=== PATIENT | female | born 1950 | race Caucasian/White ===

== ENCOUNTER 2018-11-13 15:09 | Observation (INO) | payer OTHER, BC ==
--- OUTSIDE RECORDS SUMMARY | 2018-11-13 17:08 | XMS REPORT | Clinical Summary ---
:1950 Author Organization [facility] Address [address] [place] [address] Care Team Providers Name Role Phone Jace Bear MD Primary Care Provider Allergies Active Allergy Reactions Severity Noted Date Comments Adhesive Tape-Silicones Rash Low 07/04/2017 Pulls skin off Codeine Other (See 10/30/2017 "vomit" Comments) Meperidine Rash Low 07/04/2017 hallucinations Metronidazole Hives 07/04/2017 Draws face up, hallucination Latex Hives 07/04/2017 Breathing difficulties Etodolac 07/04/2017 Bad reaction due to aspirin base Metoclopramide Low 07/04/2017 Made jaw draw up Butorphanol Tartrate 07/04/2017 Could not respond to anything Medications Medication Sig Dispensed Refills Start Date End Date Status simvastatin (ZOCOR) 20 Take 20 mg by 0 05/15/2017 Active MG tablet mouth nightly. losartan (COZAAR) 100 Take 100 mg by 0 05/12/2017 Active MG tablet mouth nightly. LINZESS 290 mcg Take 145 mcg by 0 05/15/2017 Active capsule mouth nightly. omeprazole (PriLOSEC) Take 40 mg by 0 05/12/2017 Active 40 MG capsule mouth daily. DULoxetine (CYMBALTA) Take 60 mg by 0 05/12/2017 Active 60 MG capsule mouth nightly. hyoscyamine (LEVSIN) Take 0.25 mg by 0 05/08/2017 Active 0.125 mg SL tablet mouth 2 (two) times a day. propranolol (INDERAL) Take 40 mg by 0 06/08/2017 Active 40 MG tablet mouth nightly. topiramate (TOPAMAX) Take 25 mg by 0 05/12/2017 Active 25 MG tablet mouth 2 (two) times a day. traZODone (DESYREL) Take 100 mg by 0 05/15/2017 Active 100 MG tablet mouth nightly. SUMAtriptan (IMITREX) Take 100 mg by 0 Active 100 MG tablet mouth once as needed for migraine. May repeat in 2 hours if unresolved. Do not exceed 200 mg in 24 hours. promethazine Take 12.5 mg by 0 Active (PHENERGAN) 12.5 MG mouth every 12 tablet (twelve) hours as needed for nausea or vomiting. ondansetron (ZOFRAN) 4 Take 4 mg by 0 Active MG tablet mouth every 4 (four) hours as needed for nausea or vomiting. MYRBETRIQ 25 mg tablet Take 25 mg by 0 05/12/2017 Active extended release 24 hr mouth nightly. ALPRAZolam (XANAX) Take 0.25 mg by 0 05/23/2017 Active 0.25 MG tablet mouth nightly as needed. simethicone (GAS-X Take by mouth 0 Active ORAL) as needed. acetaminophen Take 500 mg by 0 Active (TYLENOL) 500 MG mouth every 6 tablet (six) hours as needed for mild pain. fenofibrate micronized Take 134 mg by 0 Active (LOFIBRA) 134 MG mouth daily capsule before breakfast. colesevelam (WELCHOL) Take 3 tablets 180 tablet 11 01/25/2018 01/25/2019 Active 625 mg tablet (1,875 mg total) by mouth 2 (two) times a day with meals. Active Problems Problem Noted Date Status post laparoscopic Mary fundoplication 01/25/2018 History of laparoscopic cholecystectomy 01/25/2018 Abdominal fullness 01/25/2018 Functional diarrhea 01/25/2018 Nausea 01/25/2018 Bloating 01/25/2018 Gastroparesis 10/30/2017 Encounters Date Type Specialty Care Team Description 02/16/2018 Office Visit Gastroenterology [place] (Primary Dx) MD Ami 02/07/2018 Hospital Encounter Radiology [place] MD Nausea; Abdominal fullness 01/31/2018 Telephone Gastroenterology Loree Osuna MA 01/25/2018 Office Visit Gastroenterology [place] Functional diarrhea (Primary Dx); MD Ami Bloating; Nausea; Abdominal fullness; Status post laparoscopic Mary fundoplication; Gastroparesis; History of laparoscopic cholecystectomy after 11/12/2017 Family History Medical History Relation Name Comments Heart disease Brother Hernia Brother Hypertension Brother Heart disease Father Hypertension Father Hernia Mother Hernia Sister Hypertension Sister Relation Name Status Comments Brother Father Mother Sister Alive Social History Tobacco Use Types Packs/Day Years Used Date Never Smoker Smokeless Tobacco: Never Used Alcohol Use Drinks/Week oz/Week Comments Yes seldom Sex Assigned at Date Recorded Not on file Job Start Date Occupation Industry Not on file Not on file Not on file Travel History Travel Start Travel End No recent travel history available. Last Filed Vital Signs Vital Sign Reading Time Taken Blood Pressure 118/78 02/16/2018 3:35 PM CDT Pulse 71 02/16/2018 3:35 PM CDT Temperature 36.6 C (97.8 F) 01/25/2018 3:54 PM CDT Respiratory Rate - - Oxygen Saturation - - Inhaled Oxygen Concentration - - Weight 51.7 kg (114 lb) 02/16/2018 3:35 PM CDT Height 152.4 cm (5') 01/25/2018 3:54 PM CDT Body Mass Index 22.26 01/25/2018 3:54 PM CDT Plan of Treatment Health Maintenance Due Date Last Done Comments BREAST CANCER SCREENING 2002 COLON CANCER SCREENING 2002 SHINGLES VACCINES (#1) 2002 65+ PNEUMOCOCCAL VACCINE (1 of 2 - PCV13) 2017 PNEUMOCOCCAL POLYSACCHARIDE VACCINE AGE 65 AND OVER 2017 INFLUENZA VACCINE 01/10/2019 Implants Implanted Type Area Spinning Mule Tender Device Shelf Model / Identifier Expiration Serial Date / Lot Hde# [id number] Neurostimulator Enterra Ii Therapy System - [id number] Neurosurgical N/A: [employer] 09/23/2018 [id number] / Implanted: 10/30/2017 (Quantity not on file) Implants N/A NEUROMODULATION [id number] / [id number] [id number] Lead Enterra Neurostimulator Gastric - [id number] Neurosurgical N /A: [employer] 10/21/2018 [id number] / Implanted: 10/30/2017 (Quantity not on file) Implants N/A [id number] / [id number] Procedures Procedure Name Priority Date/Time Associated Diagnosis Comments NM GASTRIC EMPTYING Routine 02/07/2018 2:07 PM Bloating Results for this CDT Nausea procedure are in Abdominal fullness the results section. after 11/12/2017 Results NM Gastric Emptying (02/07/2018 2:07 PM CDT) Specimen Narrative Performed At PROCEDURE:NM GASTRIC EMPTYING [facility] INDICATION:Bloating.Nausea.Abdominal fullness. TECHNIQUE: 0.5 mCi of Tc-99m sulfur colloid was mixed with an egg and cooked.The egg was fed to the patient and dynamic planar images of the abdomen were acquired for 90 minutes.Delayed images were obtained at 4 hours. FINDINGS:The 90 minute gastric emptying rate is delayed.The half-time of emptying is 560 minutes.Normal range is between 45 and 100 minutes.4 hour residual is 17%. IMPRESSION: 1.Moderately delayed gastric emptying rate. [facility]-[id number] Procedure Note Interface, Radiology Results Incoming - 02/07/2018 5:24 PM CDT PROCEDURE: NM GASTRIC EMPTYING INDICATION: Bloating. Nausea. Abdominal fullness. TECHNIQUE: 0.5 mCi of Tc-99m sulfur colloid was mixed with an egg and cooked. The egg was fed to the patient and dynamic planar images of the abdomen were acquired for 90 minutes. Delayed images were obtained at 4 hours. FINDINGS: The 90 minute gastric emptying rate is delayed. The half-time of emptying is 560 minutes. Normal range is between 45 and 100 minutes. 4 hour residual is 17%. IMPRESSION: 1. Moderately delayed gastric emptying rate. [facility]-[id number] Performing Organization Address City/State/Zipcode Phone Number [facility] [address] [place] [address] after 11/12/2017 Advance Directives Patient has advance care planning documents on file. For more information, please contact:[facility] [place] [phone]
[2018-11-13] MEDS ORDERED: ACETAMINOPHEN 325 MG TABLET PO PRN (17:33)
[2018-11-13] MEDS ORDERED: ONDANSETRON 4 MG/2 ML VIAL IV PRN (17:33)
[2018-11-13] MEDS ORDERED: DIPHENHYDRAMINE 25 MG TAB/CAP PO PRN (17:33)
[2018-11-13] MEDS ORDERED: LOPERAMIDE HCL 2 MG CAPSULE PO PRN (17:33)
[2018-11-13 17:54] VITALS: BMI 21.3
[2018-11-13] MEDS: ENOXAPARIN 40 MG/0.4 ML SQ SCH (18:00)
--- NOTE | 2018-11-13 18:04 | RAD REPORT ---
EXAM DESCRIPTION: RAD - Chest Single View - 11/13/2018 5:58 pm CLINICAL HISTORY: chest pain Chest pain. COMPARISON: <Comparisons> FINDINGS: Portable technique limits examination quality. The lungs are grossly clear. The heart is normal in size. No displaced fractures. IMPRESSION: No acute intrathoracic process suspected.
[2018-11-13 18:12] LABS: Protime INR 1.08
[2018-11-13] MEDS: NACHLORIDE 0.45% 1,000 ML IV SCH (18:19)
[2018-11-13 18:20] LABS: Absolute Lymphocytes (CBC) 3.3 K/uL (0.7-4.9); Absolute Monocytes 0.5 K/uL (0.1-1.3); Basophils % 0.6 % (0-1.3); Eosinophils % 0.8 % (0-4.4); Hematocrit 31.9 % (36.0-45.0); Lymphocytes % 48.2 % (15.3-44.8); MPV 8.7 fL (7.6-11.3); Monocytes % 7.3 % (3.3-12.3); RBC Red Blood Cell Count 3.35 M/uL (3.86-4.86)
[2018-11-13 18:49] LABS: Albumin 3.8 g/dL (3.4-5.0); Bilirubin Direct 0.2 mg/dL (0-0.2); Bilirubin Total 0.4 mg/dL (0.2-1.0); Magnesium 2.1 mg/dL (1.8-2.4); Phosphorus 3.8 mg/dL (2.5-4.9); Potassium 3.7 mmol/L (3.5-5.1); Protein, Total 7.4 g/dL (6.4-8.2); Thyroid Stimulating Hormone 2.11 uIU/mL (0.360-3.740)
--- NOTE | 2018-11-13 19:56 | RAD REPORT ---
EXAM DESCRIPTION: CT - Chest For Pe Angio - 11/13/2018 7:41 pm CLINICAL HISTORY: Chest pain. chest pain COMPARISON: CTANGIO CHEST dated 01/21/2010; CTANGIO AORTA FOR DISSECTION dated 04/28/2014 TECHNIQUE: CT angiogram of the pulmonary arteries was performed with MIP. All CT scans are performed using dose optimization technique as appropriate and may include automated exposure control or mA/KV adjustment according to patient size. FINDINGS: No evidence of pulmonary thromboembolism. No acute aortic finding demonstrated. The lungs are clear. No significant pericardial or pleural fluid. No concerning bony finding. Small cysts is likely present in the liver. Diffuse fatty liver. Moderate axial hiatal hernia. IMPRESSION: No evidence of pulmonary thromboembolism. No acute lung findings.
[2018-11-13] MEDS ORDERED: POTASSIUM CL SA 10 MEQ TAB PO ONE (21:00)
[2018-11-13] MEDS ORDERED: ONDANSETRON 4 MG (ODT) TAB PO PRN (21:58)
[2018-11-13] MEDS ORDERED: SUMATRIPTAN SUCCI 50 MG TAB PO SCH (22:00)
[2018-11-13 22:05] VITALS: O2SAT 98
[2018-11-13] MEDS ORDERED: HYOSCYAMINE SULF 0.125 MG TAB SL PRN (23:00)
[2018-11-13 23:01] LABS: Urine Appearance CLEAR; Urine Bilirubin NEGATIVE (NEG); Urine Blood NEGATIVE (NEG); Urine Color YELLOW; Urine Glucose NEGATIVE (NEG); Urine Protein NEGATIVE (NEG); Urine Specific Gravity >=1.030 (1.005-1.030); Urine Urobilinogen 0.2 mg/dL (0.2-1.0); Urine pH 5.5 (5.0-7.0)
[2018-11-13 23:40] LABS: Urine Bacteria <20 /HPF (<20); Urine Culture Reflex Order NOT NEEDED; Urine RBC NONE SEEN /HPF (NONE SEEN)
[2018-11-14] MEDS: NACHLORIDE 0.45% 1,000 ML IV SCH (03:31)
[2018-11-14 06:00] LABS: Absolute Monocytes 0.5 K/uL (0.1-1.3); Absolute Neutrophil 1.8 K/uL (1.8-8.0); Basophils % 0.9 % (0-1.3); Eosinophils % 1.3 % (0-4.4); Hematocrit 30.5 % (36.0-45.0); MPV 8.7 fL (7.6-11.3); Monocytes % 9.3 % (3.3-12.3); RBC Red Blood Cell Count 3.21 M/uL (3.86-4.86)
[2018-11-14 06:16] LABS: Magnesium 2.1 mg/dL (1.8-2.4); Potassium 4.8 mmol/L (3.5-5.1)
[2018-11-14 07:33] LABS: Blood Morphology Comment NOT SEEN (NOT SEEN); Platelet Estimate ADEQ; Urine White Blood Cell Casts OK
--- NOTE | 2018-11-14 07:38 | EKG ---
Test Date: 2018-11-13 Test Time: 17:40:49 Anesthesiology Technologist: SIERRA MEASUREMENT RESULTS: Intervals: Rate: 56 WA: 156 QRSD: 80 QT: 408 QTc: 393 Randall: P: 38 WA: 156 QRS: 35 T: 35 INTERPRETIVE STATEMENTS: Sinus bradycardia Otherwise normal ECG Compared to ECG 04/27/2014 23:43:41 Sinus rhythm no longer present Electronically Signed On 11-14-18 07:38:02 CDT by Richardson Newell
[2018-11-14] MEDS: ENOXAPARIN 40 MG/0.4 ML SQ SCH (08:10)
[2018-11-14 08:50] VITALS: BP 116/62; TEMP 97.4
[2018-11-14] MEDS ORDERED: TRAZODONE 150 MG TAB PO SCH (21:00)
[2018-11-14] MEDS ORDERED: ATORVASTATIN 10 MG TAB PO SCH (21:00)
[2018-11-14] MEDS ORDERED: HOME MED 1 EA UNK (Linaclotide [Linzess] 290 MCG) PO SCH (21:00)
[2018-11-14] MEDS ORDERED: HOME MED 1 EA UNK (Mirabegron [Myrbetriq] 25 MG) PO SCH (21:00)
[2018-11-14] MEDS ORDERED: DULOXETINE 30 MG CAP PO SCH (21:00)
--- NOTE | 2018-11-14 21:46 | P.DS ---
Admission Date: 11/13/18 Discharge Date: 11/14/18 Disposition: ROUTINE DISCHARGE Discharge Condition: FAIR Hospital Course: JACBO IS DOING BETTER. SHE HAS LOST WEIGHT FROM HAVING SEVERE HIATAL HERNIA. SHE HAS DOCTORS FOR THAT. BP CAME UP WITH IV HYDRATION. I STOPPED LOSARTAN AND SHE WILL GO HOME TODAY. Vital Signs/Physical Exam: Temp Pulse Resp BP Pulse Ox 97.4 F 70 14 116/62 99 11/14/18 08:00 11/14/18 08:00 11/14/18 08:00 11/14/18 08:00 11/14/18 08:00 Laboratory Data at Discharge: WBC 5.4 K/uL (4.3-10.9) D 11/14/18 05:28 Hgb 10.2 g/dL (12.0-15.0) L 11/14/18 05:28 Hct 30.5 % (36.0-45.0) L 11/14/18 05:28 Plt Count 302 K/uL (152-406) 11/14/18 05:28 PT 12.7 SECONDS (9.5-12.5) H 11/13/18 17:50 INR 1.08 11/13/18 17:50 APTT 37.9 SECONDS (24.3-36.9) H 11/13/18 17:50 Sodium 143 mmol/L (136-145) 11/14/18 05:28 Potassium 4.8 mmol/L (3.5-5.1) 11/14/18 05:28 BUN 21 mg/dL (7-18) H 11/14/18 05:28 Creatinine 0.95 mg/dL (0.55-1.3) 11/14/18 05:28 Glucose 93 mg/dL (74-106) 11/14/18 05:28 Phosphorus 3.8 mg/dL (2.5-4.9) 11/13/18 17:50 Magnesium 2.1 mg/dL (1.8-2.4) 11/14/18 05:28 Total Bilirubin 0.4 mg/dL (0.2-1.0) 11/13/18 17:50 AST 19 U/L (15-37) 11/13/18 17:50 ALT 17 U/L (12-78) 11/13/18 17:50 Alkaline Phosphatase 48 U/L (45-117) 11/13/18 17:50 Troponin I < 0.02 ng/mL (0.0-0.045) 11/14/18 09:25 Home Medications: Duloxetine HCl 60 mg PO BEDTIME 11/13/18 Ergocalciferol (Vitamin D2) [Vitamin D 50,000 Unit Cap] 50,000 unit PO EVERY 7TH DAY 11/13/18 Fenofibrate,Micronized [Fenofibrate] 134 mg PO BEDTIME 11/13/18 Hyoscyamine Sulfate 0.125 mg SL Q4HP PRN 11/13/18 Linaclotide [Linzess] 290 mcg PO BEDTIME 11/13/18 Mirabegron [Myrbetriq] 25 mg PO BEDTIME 11/13/18 Ondansetron HCl [Zofran] 4 mg PO Q6HP PRN 11/13/18 Pantoprazole [Protonix Tab*] 40 mg PO [id number] 11/13/18 Promethazine HCl 12.5 mg PO BID PRN 11/13/18 Simvastatin 20 mg PO BEDTIME 11/13/18 Sumatriptan [Imitrex*] 100 mg PO PRN 11/13/18 Trazodone [Desyrel*] 150 mg PO BEDTIME 11/13/18 Followup: Jace Bear MD [Primary Care Provider] -
[2018-11-18 23:13] LABS: Vitamin D 1,25-Dihydroxy Total 62 pg/mL (18-72); Vitamin D,1,25-OH2, D2 <8 pg/mL
== END 2018-11-14 11:35 | disposition home or self-care (01) ==
LOC: 2ND 17:05
PROVIDERS: ADMIT Internal Medicine; ATTEND Internal Medicine
DX: I95.9 Hypotension, unspecified (principal); R07.9 Chest pain, unspecified; R00.1 Bradycardia, unspecified; K76.0 Fatty (change of) liver, not elsewhere classified; K76.89 Other specified diseases of liver; K44.9 Diaphragmatic hernia without obstruction or gangrene; I10 Essential (primary) hypertension; I25.10 Atherosclerotic heart disease of native coronary artery without angina pectoris; E53.8 Deficiency of other specified B group vitamins; D50.9 Iron deficiency anemia, unspecified; Z79.899 Other long term (current) drug therapy
CPT/HCPCS: 93005; 87040; 85025 ×2; 81001; 80048; 36415 ×2; 83735 ×2; 84100; 85610; 85730; 82652; 84443; 82248; 84484 ×3; 82607; 80053; 71275; 71045; Q9967; J2405; G0379; G0378

== ENCOUNTER 2022-07-13 17:38 | Emergency (ER) | payer OTHER ==
--- OUTSIDE RECORDS SUMMARY | 2022-07-13 17:42 | XMS REPORT | Continuity of Care Document ---
:1950 Author Organization [facility] t Address [address] [place] [address] Care Team Providers Name Role Phone Jace Ramirez Primary Care Physician IGLESIA DICK Attending Clinician Unavailable Red Gunn MD Attending Clinician Parminder DANIEL, Praveen Attending Clinician Unavailable Ar ROD, Constantin Scherer Attending Clinician [phone] Crissy REDMAN, Steffanie Attending Clinician Nuvia Felder RN Attending Clinician Unavailable Iglesia Dick MD Attending Clinician Doctor Unassigned, [place] Attending Clinician Unavailable Pob, Adc Lab Main Attending Clinician Unavailable Jesse Attending Clinician Unavailable IGLESIA DICK Admitting Clinician Unavailable RED GUNN Admitting Clinician Unavailable Iglesia Dick MD Admitting Clinician Jesse Admitting Clinician Unavailable Payers Payer Name Policy Type Policy Number Effective Date Expiration Date [place] hendrickson MEDICARE PART A [id number] 2017 \\T\\ B 00:00:00 [place] [id number] 2014 [place] (PPO) 00:00:00 Problems Condition Condition Condition Status Onset Resolution Last Treating Co mments Source Name Details Category Date Date Treatment Clinician Date Status Status Disease Active Methodi post post 8-16 st laparoscop laparoscop 00:00: Ho spita ic Mary ic Mary 00 l fundoplica fundoplica tion tion History of History of Disease Active 0 M ethodi laparoscop laparoscop 01-25 ic ic 00:00: Hospita cholecyste cholecyste 00 l ctomy ctomy Abdominal Abdominal Disease Active Met hodi fullness fullness 01-25 00:00: Hospita 00 l Functional Functional Disease Active M ethodi diarrhea diarrhea 01-25 00:00: Hospita 00 l Nausea Nausea Disease Active Methodi 01-25 00:00: Hospita 00 l Bloating Bloating Disease Active Metho di 01-25 00:00: Hospita 00 l 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 10-30 00:00: Hospita 00 l Chest pain Chest pain Disease Active U nivers of of 3-09 [place] 00 [place] Allergies, Adverse Reactions, Alerts Allergy Allergy Status Severity Reaction(s) Onset Inactive Treating Comm ents Source Name Type Date Date Clinician Codeine Propensi Active Other (See "vomit" Me thodi ty to Comments) 10-30 adverse 00:00: Hospita reaction 00 l s to drug Adhesive Propensi Active Rash Pulls Method i Tape-Rose ty to 07-[address] icones adverse 00:00: Hospita reaction 00 l s to drug Meperidi Propensi Active Rash hallucina Met hodi ne ty to 07-[address] adverse 00:00: Hospita reaction 00 l s to drug Metronid Propensi Active Hives Draws Method i azole ty to 07-04 face up, st adverse 00:00: hallucina Hospit a reaction 00 tion l s to drug Latex Propensi Active Hives Breathing Metho di ty to 07-[address] adverse 00:00: ies Hospita reaction 00 l s to drug Etodolac Propensi Active Bad Method i ty to 07-[address] adverse 00:00: due to Hospita reaction 00 aspirin l s to base drug Metoclop Propensi Active Made jaw Meth brisa ramide ty to 07-[address] adverse 00:00: Hospita reaction 00 l s to drug Butorpha Propensi Active Could not Met hodi nol ty to 07-[address] Tartrate adverse 00:00: to Hospita reaction 00 anything l s to drug Metronid Propensi Active Unknown - Uni vers azole ty to See comments 3 ity of Hcl adverse 00:00: [place] reaction 00 Medical s Branch METRONID DRUG Active Unknown-Cmnt Un elodia AZOLE INGREDI 3-09 ity of HCL 00:00: [place] 00 Medical Branch Latex Propensi Active Unknown - Unive rs ty to See comments 1-12 ity of adverse 00:00: [place] reaction 00 Medical s Branch Levoflox Propensi Active Unknown - Uni vers acin ty to See comments 1-12 ity of adverse 00:00: [place] reaction 00 Medical s Branch Metoclop Propensi Active Unknown - Uni vers ramide ty to See comments 1-12 ity of adverse 00:00: [place] reaction 00 Medical s Branch CEPHALOS Drug Active Unknown-Cmnt Un elodia PORINS Class 1-12 ity of 00:00: [place] 00 Medical Branch MEPERIDI DRUG Active Unknown-Cmnt Un elodia NE HCL INGREDI 1-12 ity of 00:00: [place] 00 Medical Branch LATEX DRUG Active Unknown-Cmnt Univ ers INGREDI 1-12 ity of 00:00: [place] 00 Medical Branch LEVOFLOX DRUG Active Unknown-Cmnt Un elodia ACIN INGREDI 1-12 ity of 00:00: [place] 00 Medical Branch METOCLOP DRUG Active Unknown-Cmnt 0 Un elodia RAMIDE INGREDI 1-12 ity of 00:00: [place] 00 Medical Branch Cephalos Propensi Active Unknown - Uni vers porins ty to See comments 1-12 ity of adverse 00:00: [place] reaction 00 Medical s Branch Meperidi Propensi Active Unknown - Uni vers ne Hcl ty to See comments 1-12 ity of adverse 00:00: [place] reaction 00 Medical s Branch Family History Family Member Diagnosis Comments Start Date Stop Date Source Natural brother Heart disease Method [facility] Natural brother Hernia [facility] Natural [facility] Natural father Heart disease [facility] father Hypertension [facility] Natural mother Hernia [facility] Natural sister Hernia [facility] Natural sister Hypertension [facility] Social History Social Habit Start Date Stop Date Quantity Comments Source Exposure to Not sure [facility] of SARS-CoV-2 [place] [facility] (event) Branch Alcohol intake 2021-12-30 2021-12-30 Current drinker [facility] 00:00:00 00:00:00 of alcohol (finding) Alcohol Comment 2017-09-07 2017-09-07 seldom [facility] 00:00:00 00:00:00 Tobacco use and 2017-07-04 2017-07-04 Smokeless tobacco [facility] exposure 00:00:00 00:00:00 non-user Sex [birth year] [facility] 00:00:00 00:00:00 Smoking Status Start Date Stop Date Source Never smoked tobacco [facility]spital Medications Ordered Filled Start Stop Current Ordering Indication Dosage Frequency Signature Comments Components Source Medication Medication Date Date Medication? Clinician (SIG) Name Name SUMAtriptan Yes 100mg Take 100 M ethodi (IMITREX) 7-[address] 100 MG 12:07: mouth once Hospi ta tablet 15 as needed l for migraine. May repeat in 2 hours if unresolved . Do not exceed 200 mg in 24 hours. promethazin Yes 12.5mg Q12H Take 12.5 Methodi e 7-[address] (PHENERGAN) 12:07: mouth Hospi ta 12.5 MG 15 every 12 l tablet (twelve) hours as needed for nausea or vomiting. ondansetron Yes 4mg Q4H Take 4 mg M ethodi (ZOFRAN) 4 7-[address] MG tablet 12:07: every 4 Hospi ta 15 (four) l hours as needed for nausea or vomiting. simethicone Yes Take by Met hodi (GAS-X 7-[address] ORAL) 12:07: needed. Hospita 15 l fenofibrate Yes 134mg QD Take 134 M ethodi micronized 7-[address] (LOFIBRA) 12:07: mouth Hospita 134 MG 15 daily l capsule before breakfast. gabapentin 2022-0 Yes 100mg [id number] Take 100 Methodi (NEURONTIN) 7-21 [id number] mg by s t 100 mg 12:07: 3D mouth 3 Hospita capsule 15 (three) l times a day. methocarbam 0 Yes 500mg Q.[id number] Take 500 Methodi oL 7-[id number] (ROBAXIN) 12:07: 3D mouth 3 Hospi ta 500 MG 15 (three) l tablet times a day. hyoscyamine 0 Yes .125mg Q4H Take 0.125 Methodi (LEVSIN) 7-[address] 0.125 mg SL 12:07: mouth Hospi ta tablet 15 every 4 l (four) hours as needed for cramping. traMADoL [place] 11198 50mg Q6H Take 50 mg Me thodi (ULTRAM) 50 7-[address] mg tablet 12:07: every 6 Hospi ta 15 (six) l hours as needed for moderate pain .acute pain. sucralfate Yes 1g QD Take 1 g Met hodi (CARAFATE) -[address] 1 gram 12:07: daily. Hospita tablet 15 l pantoprazol Yes Method i e -28 st (PROTONIX) 00:00: Hospita 40 MG EC 00 l tablet acetaminoph Yes 500mg Q6H Take 500 M ethodi en 5-[address] (TYLENOL) 15:40: mouth Hospita 500 MG 47 every 6 l tablet (six) hours as needed for mild pain. sodium,pota Yes Drink 1 Met hodi ssium,mag 4-[address] sulfates 00:00: directed Hospi ta (SUPREP) 00 for dose 1 l 17.5-3.13-1 and 1 .6 gram bottle as recon soln directed for dose 2. ceFAZolin 2020-06 Yes PRN, Univers (ANCEF) 0-06 Starting ity of injection 16:58: on Mon03/17/21 at [place] [address], Branch Until Discontinu ed, JUSTYN, Intra-op ceFAZolin 2020-06- No PRN, Univers (ANCEF) 0-06 10-06 Starting ity of injection 16:58: 19:34 on Wed [place] 00 :41 03/17/21 at Medical 1158, Branch Until Mon03/17/21 at 1434, JUSTYN, Intra-op water for 2020-06 Yes PRN, Univers irrigation 0-06 Starting ity o f irrigation 16:57: on Wed [place] solution 00 03/17/21 at Medic al 1157, Branch Until Discontinu ed, Routine, Intra-op water for 2020-06- No PRN, Univers irrigation 0-06 10-06 Starting ity of irrigation 16:57: 19:34 on Wed [place] solution 00 :41 03/17/21 at Medic al 1157, Branch Until Mon03/17/21 at 1434, Routine, Intra-op sodium 2020-06 Yes PRN, Univers chloride 0-06 Starting ity of (NS) 16:56: on Wed [place] injection 00 03/17/21 at [facility] [place] 1156, Branch Until Discontinu ed, Routine, Intra-op neomycin-po 2020-06 Yes PRN, Univer s lymyxin-dex 0-06 Starting ity of amethasone 16:56: on Wed [place] (MAXITROL) 00 03/17/21 at [facility] ical 3.5 1156, Branch mg/g-10,000 Until unit/g-0.1 Discontinu % ed, ophthalmic Routine, ointment Intra-op dexamethaso 2020-06 Yes PRN, Univer s ne 0-06 Starting ity of (DECADRON 16:56: on Wed [place] PHOSPHATE) 00 03/17/21 at Med ical injection 1156, Branch Until Discontinu ed, Routine, Intra-op sodium 2020-06- No PRN, Univers chloride 0-06 10-06 Starting ity of (NS) 16:56: 19:34 on Wed [place] injection 00 :41 03/17/21 at Medi [place] 1156, Branch Until Mon03/17/21 at 1434, Routine, Intra-op neomycin-po 2020-06- No PRN, [facility] lymyxin-dex 0-06 10-06 Starting ity of amethasone 16:56: 19:34 on Wed [place] (MAXITROL) 00 :41 03/17/21 at Med ical 3.5 1156, Branch mg/g-10,000 Until Mon unit/g-0.1 03/17/21 at % 1434, ophthalmic Routine, ointment Intra-op dexamethaso 2020-06- No PRN, Unive rs ne 0-06 10-06 Starting ity of (DECADRON 16:56: 19:34 on Mon PHOSPHATE) 00 :41 03/17/21 at Med ical injection 1156, Branch Until Mon03/17/21 at 1434, Routine, Intra-op EPINEPHrine 2020-06 Yes PRN, Univer s 1:1,000 (1 0-06 Starting ity o f mg/mL) 16:55: on Mon (ADRENALIN) 00 03/17/21 at [facility], Branch Until Discontinu ed, Routine, Intra-op DUOVISC 2020-06 Yes PRN, Univers (DUOVISC 0-06 Starting ity of VISCO 16:55: on Mon ELASTIC) 3 00 03/17/21 at [facility] ical %-4 %(0.5 1155, Branch mL) 1 % Until (0.55 mL) Discontinu intraocular ed, injection Routine, Intra-op EPINEPHrine 2020-06- No PRN, Unive rs 1:1,000 (1 0-06 10- Starting ity of mg/mL) 16:55: 19:34 on Mon (ADRENALIN) 00 :41 03/17/21 at Va dical injection 1155, Branch Until Mon03/17/21 at 1434, Routine, Intra-op DUOVISC 2020-06- No PRN, Univers (DUOVISC 0-06 10-06 Starting ity of VISCO 16:55: 19:34 on Mon ELASTIC) 3 00 :41 03/17/21 at Med ical %-4 %(0.5 1155, Branch mL) 1 % Until Wed (0.55 mL) 03/17/21 at intraocular 1434, injection Routine, Intra-op carbachoL 2020-06 Yes PRN, Univers (MIOSTAT) 0-06 Starting ity of 0.01 % 16:54: on Mon [place] intraocular 00 03/17/21 at Va dical injection 1154, Branch Until Discontinu ed, Routine, Intra-op carbachoL 2020-06- No PRN, Univers (MIOSTAT) 0-06 10-06 Starting ity o f 0.01 % 16:54: 19:34 on Wed [place] intraocular 00 :41 03/17/21 at Va dical injection 1154, Branch Until Mon03/17/21 at 1434, Routine, Intra-op balanced 2020-06 Yes PRN, Univers salt irrig 0-06 Starting ity o f soln comb1 16:53: on Mon [place] (BSS PLUS) 00 03/17/21 at [facility] ica ophthalmic 1153, Branch solution Until 500 mL bag Discontinu ed, Routine, Intra-op balanced 2020-06- No PRN, Univers salt irrig 0-06 10-06 Starting ity of soln comb1 16:53: 19:34 on Mon [place] (BSS PLUS) 00 :41 03/17/21 at [facility] ophthalmic 1153, Branch solution Until Wed 500 mL bag 03/17/21 at 1434, Routine, Intra-op eye block 2020-06 Yes PRN, Univers syringe 11 0-06 Starting ity o f mL 16:40: on Mon [place] 00 03/17/21 at [facility] 1140, Branch Until Discontinu ed, Intra-op eye block 2020-06- No PRN, Univers syringe 11 0-06 10-06 Starting ity of mL 16:40: 19:34 on Mon [place] 00 :41 03/17/21 at [facility] 1140, Branch Until Mon03/17/21 at 1434, Intra-op mydriatic 2020-06- No .5mL 0.5 mL, Univ ers #5 0-06 10- Left Eye, ity of ophthalmic 15:00: 15:36 ONCE, 1 [place] as solution 00 :00 dose, On Medical 0.5 mL Wed Branch syringe 03/17/21 at 1000, Routine, DSU Pre-op lactated 2020-06- No 1000mL at 42 Unive rs ringers IV 0-06 10-06 mL/hr, ity of infusion 15:00: 15:22 1,000 mL, [place] as 1,000 mL 00 :00 IV Medical Infusion, Branch ONCE, 1 dose, On Mon03/17/21 at 1000, Routine, DSU Pre-op mydriatic 2020-06- No .5mL 0.5 mL, Univ ers #5 0-06 10-06 Left Eye, ity of ophthalmic 15:00: 15:36 ONCE, 1 [place] solution 00 :00 dose, On Medical 0.5 mL Wed Branch syringe 03/17/21 at 1000, Routine, DSU Pre-op lactated 2020-06- No 1000mL at 42 Unive rs ringers IV 0-06 10-06 mL/hr, ity of infusion 15:00: 15:22 1,000 mL, [place] as 1,000 mL 00 :00 IV Medical Infusion, Branch ONCE, 1 dose, On 03/17/21 at 1000, Routine, DSU Pre-op progesteron 2020-06 Yes 200mg Take 200 U nivers e 0-06 mg by ity of (PROMETRIUM 12:34: mouth [place] ) 200 mg 38 daily. Medical capsule Branch mirabegron 2020-06 Yes Take by [facility] ers (MYRBETRIQ) 0-06 mouth. ity of 25 mg 12:34: [place] tablet 38 Medical Branch propranolol 2020-06 Yes 10mg Take 10 mg Univers (INDERAL) 0-06 by mouth 2 ity of 10 mg 12:34: (two) [place] tablet 38 times Medical daily. Branch simvastatin 2020-06 Yes 20mg Take 20 mg Univers (ZOCOR) 20 0-06 by mouth ity o f mg tablet 12:34: at [place] 38 bedtime. Medical Branch estradiol 2020-06 Yes 1mg Take 1 mg Uni vers (ESTRACE) 1 0-06 by mouth ity of mg tablet 12:34: daily. [place] 38 Medical Branch traZODONE 2020-06 Yes 50mg Take 50 mg Un elodia (DESYREL) 0-06 by mouth ity of 50 mg 12:34: at [place] tablet 38 bedtime. Medical Branch esomeprazol 2020-06 Yes 40mg Take 40 mg Univers e (NEXIUM) 0-06 by mouth ity o f 40 mg 12:34: daily with [place] capsule 38 breakfast. Medica l Branch DULoxetine 2020-06 Yes 60mg Take 60 mg U nivers (CYMBALTA) 0-06 by mouth ity o f 60 mg 12:34: daily. [place] capsule 38 Medical Branch SUMAtriptan 2020-06 Yes 50mg Take 50 mg Univers (IMITREX) 0-06 by mouth ity of 50 mg 12:34: once now. [place] tablet Medical Branch amLODIPine 2020-06 Yes 5mg Take 5 mg Un elodia (NORVASC) 5 0-06 by mouth ity of mg tablet 12:34: daily. [place] [address] Medical Branch losartan 2020-06 Yes 100mg Take 100 Univ ers (COZAAR) 0-06 mg by ity of 100 mg 12:34: mouth [place] tablet 38 daily. Medical Branch linaclotide 2020-06 Yes Take by Uni vers (LINZESS) 0-06 mouth. ity of 290 mcg Cap 12:34: [place] [address] Medical Branch progesteron 2020-06 Yes 200mg Take 200 U nivers e 0-06 mg by ity of (PROMETRIUM 12:34: mouth [place] ) 200 mg 38 daily. Medical capsule Branch mirabegron 2020-06 Yes Take by Univ ers (MYRBETRIQ) 0-06 mouth. ity of 25 mg 12:34: [place] tablet 38 Medical Branch propranolol 2020-06 Yes 10mg Take 10 mg Univers (INDERAL) 0-06 by mouth 2 ity of 10 mg 12:34: (two) [place] tablet 38 times Medical daily. Branch simvastatin 2020-06 Yes 20mg Take 20 mg Univers (ZOCOR) 20 0-06 by mouth ity o f mg tablet 12:34: at [place] 38 bedtime. Medical Branch estradiol 2020-06 Yes 1mg Take 1 mg Uni vers (ESTRACE) 1 0-06 by mouth ity of mg tablet 12:34: daily. [place] [address] Medical Branch traZODONE 2020-06 Yes 50mg Take 50 mg Un elodia (DESYREL) 0-06 by mouth ity of 50 mg 12:34: at [place] tablet 38 bedtime. Medical Branch esomeprazol 2020-06 Yes 40mg Take 40 mg Univers e (NEXIUM) 0-06 by mouth ity o f 40 mg 12:34: daily with [place] capsule 38 breakfast. Medica l Branch DULoxetine 2020-06 Yes 60mg Take 60 mg U nivers (CYMBALTA) 0-06 by mouth ity o f 60 mg 12:34: daily. [place] capsule Medical Branch SUMAtriptan 2020-06 Yes 50mg Take 50 mg Univers (IMITREX) 0-06 by mouth ity of 50 mg 12:34: once now. [place] [address] Medical Branch amLODIPine 2020-06 Yes 5mg Take 5 mg Un elodia (NORVASC) 5 0-06 by mouth ity of mg tablet 12:34: daily. [address] Branch losartan 2020-06 Yes 100mg Take 100 Univ ers (COZAAR) 0-06 mg by ity of 100 mg 12:34: mouth [place] tablet daily. Medical Branch linaclotide 2020-06 Yes Take by Uni vers (LINZESS) 0-06 mouth. ity of 290 mcg Cap 12:34: [place] [address] Medical Branch LINZESS 290 Yes 290ug QD Take 1 Met hodi mcg capsule 2-[address] 00:00: (290 mcg Hospita 00 total) by l mouth nightly. prucaloprid 2018-06 Yes 2mg QD Take 2 mg M ethodi e 0-[address] (MOTEGRITY) 00:00: daily. [facility] 1 mg tablet 00 l propranolol 2016-06 Yes 40mg QD Take 40 mg Methodi (INDERAL) 2-[address] 40 MG 00:00: nightly. Hospita tablet 00 l ALPRAZolam 2016-06 Yes .25mg QD Take 0.25 M ethodi (XANAX) 2-[address] 0.25 MG 00:00: mouth Hospita tablet 00 nightly as l needed. simvastatin 2016-06 Yes 20mg QD Take 20 mg Methodi (ZOCOR) 20 2-[address] MG tablet 00:00: nightly. [facility] 00 l traZODone 2016-06 Yes 100mg QD Take 100 Met hodi (DESYREL) 2-[address] 100 MG 00:00: mouth Hospita tablet 00 nightly. l losartan 2016-06 Yes 100mg QD Take 100 Meth brisa (COZAAR) 2-[address] 100 MG 00:00: mouth Hospita tablet 00 nightly. l DULoxetine 2016-06 Yes 60mg QD Take 60 mg M ethodi (CYMBALTA) 2-[address] 60 MG 00:00: nightly. Hospita capsule 00 l topiramate 2016-06 Yes 25mg Q.5D Take 25 mg M ethodi (TOPAMAX) 2-[address] 25 MG 00:00: (two) Hospita tablet 00 times a l day. MYRBETRIQ 2017-1 Yes 25mg QD Take 25 mg Me thodi 25 mg 2-[address] tablet 00:00: nightly. Hospita extended 00 l release 24 hr cyclobenzap 2017-0 Yes 5mg Take 1 Univ ers rine 5 mg 4-28 tablet by ity o f tablet 00:00: mouth 3 [place] 00 (three) Medical times Branch daily. proMETHazin 2017-0 Yes 25mg Take 1 Univ ers e 25 mg 4-28 tablet by ity of tablet 00:00: mouth [place] 00 every 6 Medical (six) Branch hours as needed for Nausea and Vomiting (N/V). traMADOL 2017-0 Yes 50mg Take 1 Univers (ULTRAM) 50 4-28 tablet by ity of mg tablet 00:00: mouth [place] 00 every 6 Medical (six) Branch hours as needed for Pain (scale 4-6). Jeffery Vasquez PA-C / Jasper Samuel MD ARIANA# [id number] DPS# [id number] x Lic.# [id number] NPI# [id number] cyclobenzap 2017-0 Yes 5mg Take 1 Univ ers rine 5 mg 4-28 tablet by ity o f tablet 00:00: mouth 3 (three) Medical times Branch daily. proMETHazin 2017-0 Yes 25mg Take 1 Univ ers e 25 mg 4-28 tablet by ity of tablet 00:00: mouth [place] 00 every 6 Medical (six) Branch hours as needed for Nausea and Vomiting (N/V). traMADOL 2017-0 Yes 50mg Take 1 Univers (ULTRAM) 50 4-28 tablet by ity of mg tablet 00:00: mouth [place] 00 every 6 Medical (six) Branch hours as needed for Pain (scale 4-6). Jeffery Vasquez PA-C / Jasper Samuel MD ARIANA# [id number] DPS# [id number] x Lic.# [id number] NPI# [id number] cyclobenzap 2017-0 Yes 5mg Take 1 Univ ers rine 5 mg 4-28 tablet by ity o f tablet 00:00: mouth 3 [place] 00 (three) Medical times Branch daily. proMETHazin 2017-0 Yes 25mg Take 1 Univ ers e 25 mg 4-28 tablet by ity of tablet 00:00: mouth [place] 00 every 6 Medical (six) Branch hours as needed for Nausea and Vomiting (N/V). traMADOL 2017-0 Yes 50mg Take 1 Univers (ULTRAM) 50 4-28 tablet by ity of mg tablet 00:00: mouth [place] 00 every 6 Medical (six) Branch hours as needed for Pain (scale 4-6). Jeffery Vasquez PA-C / Jasper Samuel MD ARIANA# [id number] DPS# [id number] x Lic.# [id number] NPI# [id number] cyclobenzap 2017-0 Yes 5mg Take 1 Univ ers rine 5 mg 4-28 tablet by ity o f tablet 00:00: mouth 3 [place] 00 (three) Medical times Branch daily. proMETHazin 2017-0 Yes 25mg Take 1 Univ ers e 25 mg 4-28 tablet by ity of tablet 00:00: mouth [place] 00 every 6 Medical (six) Branch hours as needed for Nausea and Vomiting (N/V). traMADOL 2017-0 Yes 50mg Take 1 Univers (ULTRAM) 50 4-28 tablet by ity of mg tablet 00:00: mouth [place] 00 every 6 Medical (six) Branch hours as needed for Pain (scale 4-6). Jeffery Vasquez PA-C / Jasper Samuel MD ARIANA# [id number] DPS# [id number] x Lic.# [id number] NPI# [id number] linaclotide 2015-06 Yes Take by Uni vers (LINZESS) 2-04 mouth. ity of 290 mcg Cap 23:27: [place] Medical Branch linaclotide 2015-06 Yes Take by Uni vers (LINZESS) 2-04 mouth. ity of 290 mcg Cap 23:27: [place] 03 Medical Branch progesteron Yes 200mg Take 200 U nivers e 3-10 mg by ity of (PROMETRIUM 12:48: mouth [place] ) 200 mg 11 daily. Medical capsule Branch mirabegron Yes Take by Univ ers (MYRBETRIQ) 3-10 mouth. ity of 25 mg 12:48: [place] tablet 11 Medical Branch propranolol Yes 10mg Take 10 mg Univers (INDERAL) 3-10 by mouth 2 ity of 10 mg 12:48: (two) [place] tablet 11 times Medical daily. Branch simvastatin 2016-0 Yes 20mg Take 20 mg Univers (ZOCOR) 20 3-10 by mouth ity o f mg tablet 12:48: at [place] [address] bedtime. Medical Branch estradiol 2016-0 Yes 1mg Take 1 mg Uni vers (ESTRACE) 1 3-10 by mouth ity of mg tablet 12:48: daily. [place] [address] Medical Branch traZODONE 2016-0 Yes 50mg Take 50 mg Un elodia (DESYREL) 3-10 by mouth ity of 50 mg 12:48: at [place] tablet 11 bedtime. Medical Branch esomeprazol 2016-0 Yes 40mg Take 40 mg Univers e (NEXIUM) 3-10 by mouth ity o f 40 mg 12:48: daily with [place] capsule 11 breakfast. Medica l Branch DULoxetine 2015-0 Yes 60mg Take 60 mg U nivers (CYMBALTA) 3-10 by mouth ity o f 60 mg 12:48: daily. [place] [address] Medical Branch SUMAtriptan 0 Yes 50mg Take 50 mg Univers (IMITREX) 3-10 by mouth ity of 50 mg 12:48: once now. [facility] 11 Medical Branch amLODIPine 0 Yes 5mg Take 5 mg Un elodia (NORVASC) 5 3-10 by mouth ity of mg tablet 12:48: daily. [place] [address] Medical Branch losartan 2015-0 Yes 100mg Take 100 Univ ers (COZAAR) 3-10 mg by ity of 100 mg 12:48: mouth [place] tablet 11 daily. Medical Branch progesteron 2015-0 Yes 200mg Take 200 U nivers e 3-10 mg by ity of (PROMETRIUM 12:48: mouth [place] ) 200 mg 11 daily. Medical capsule Branch mirabegron 2016-0 Yes Take by Univ ers (MYRBETRIQ) 3-10 mouth. ity of 25 mg 12:48: [place] tablet 11 Medical Branch propranolol 2016-0 Yes 10mg Take 10 mg Univers (INDERAL) 3-10 by mouth 2 ity of 10 mg 12:48: (two) [place] tablet 11 times Medical daily. Branch simvastatin 2015- Yes 20mg Take 20 mg Univers (ZOCOR) 20 3-10 by mouth ity o f mg tablet 12:48: at [place] [address] bedtime. Medical Branch estradiol Yes 1mg Take 1 mg Uni vers (ESTRACE) 1 3-10 by mouth ity of mg tablet 12:48: daily. [place] [address] Medical Branch traZODONE 2015- Yes 50mg Take 50 mg Un elodia (DESYREL) 3-10 by mouth ity of 50 mg 12:48: at [place] tablet 11 bedtime. Medical Branch esomeprazol Yes 40mg Take 40 mg Univers e (NEXIUM) 3-10 by mouth ity o f 40 mg 12:48: daily with [place] capsule 11 breakfast. Medica l Branch DULoxetine 2015- Yes 60mg Take 60 mg U nivers (CYMBALTA) 3-10 by mouth ity o f 60 mg 12:48: daily. [place] [address] Medical Branch SUMAtriptan Yes 50mg Take 50 mg Univers (IMITREX) 3-10 by mouth ity of 50 mg 12:48: once now. [place] [address] Medical Branch amLODIPine Yes 5mg Take 5 mg Un elodia (NORVASC) 5 3-10 by mouth ity of mg tablet 12:48: daily. [place] [address] Medical Branch losartan Yes 100mg Take 100 Univ ers (COZAAR) 3-10 mg by ity of 100 mg 12:48: mouth [place] tablet 11 daily. Medical Branch aspirin 325 Yes 325mg Take 1 Tab Univers mg tablet 3-10 by mouth ity of 00:00: daily. [address] Branch aspirin 325 Yes 325mg Take 1 Tab Univers mg tablet 3-10 by mouth ity of 00:00: daily. [address] Branch aspirin 325 Yes 325mg Take 1 Tab Univers mg tablet 3-10 by mouth ity of 00:00: daily. [address] Branch aspirin 325 Yes 325mg Take 1 Tab Univers mg tablet 3-10 by mouth ity of 00:00: daily. [place] [address] Medical Branch ondansetron Yes 4mg Take 1 Tab Univers (ZOFRAN, 1-13 by mouth ity of HYDROCHLORI 00:00: every 8 [place],) 4 mg 00 (eight) Medical tablet hours as Branch needed for Nausea and Vomiting (N/V). ondansetron Yes 4mg Take 1 Tab Univers (ZOFRAN, 1-13 by mouth ity of HYDROCHLORI 00:00: every 8 [place],) 4 mg 00 (eight) Medical tablet hours as Branch needed for Nausea and Vomiting (N/V). ondansetron 2016-0 Yes 4mg Take 1 Tab Univers (ZOFRAN, 1-13 by mouth ity of HYDROCHLORI 00:00: every 8 [place],) 4 mg 00 (eight) Medical tablet hours as Branch needed for Nausea and Vomiting (N/V). ondansetron 2015-0 Yes 4mg Take 1 Tab Univers (ZOFRAN, 1-13 by mouth ity of HYDROCHLORI 00:00: every 8 [place],) 4 mg 00 (eight) Medical tablet hours as Branch needed for Nausea and Vomiting (N/V). Immunizations Ordered Immunization Filled Immunization Date Status Commen ts Source Name Name PAULA SHETHSj 2021-05-12 Completed Methodis t MRNA VACCINATION 00:00:00 [facility] PAULA SHETHSj 2020-09-16 Completed Methodis t MRNA [facility]ACCINATION 00:00:00 [facility] DOMENICSj 2020-08-19 Completed Methodis t MRNA VACCINATION 00:00:00 Hospital Vital Signs Vital Name Observation Time Observation Value Comments Source Systolic blood 2021-03-17 17:10:00 132 mm[Hg] Univer sity of pressure [facility] Diastolic blood 2021-03-17 17:10:00 70 mm[facility]Hg] [facility] 2021-03-17 17:10:00 84 /min [facility] Oxygen saturation in 2021-03-17 17:10:00 97 /min [facility] Arterial blood by [facility] Pulse oximetry Branch Body temperature 2021-03-17 17:00:00 36.5 Maci [facility] Respiratory rate 2021-03-17 15:01:00 16 /min [facility] Body height 2021-03-04 14:49:00 152.4 cm [facility] Body weight 2021-03-04 14:49:00 54.9 kg [facility] BMI 2021-03-04 14:49:00 23.64 kg/m2 [facility] Systolic blood 2021-03-17 17:10:00 132 mm[Hg] Univer sity of pressure [facility] Diastolic blood 2021-03-17 17:10:00 70 mm[Hg] Unive rsity of [facility] Heart rate 2021-03-17 17:10:00 84 /min [facility] Oxygen saturation in 2021-03-17 17:10:00 97 /min University Arterial blood by [facility] Pulse oximetry [place] Body temperature 2021-03-17 17:00:00 36.5 [facility] 2021-03-17 15:01:00 16 /min [facility] Body height 2021-03-04 14:49:00 152.4 cm [facility] Body weight 2021-03-04 14:49:00 54.9 kg [facility] BMI 2021-03-04 14:49:00 23.64 kg/m2 [facility] Systolic blood 2021-12-30 17:04:00 124 mm[Hg] Method ist [facility] pressure Diastolic blood 2021-12-30 17:04:00 72 mm[Hg] [facility] pressure Heart rate 2021-12-30 17:04:00 81 /min [facility] Body height 2021-12-30 17:04:00 152.4 cm [facility] Body weight 2021-12-30 17:04:00 49.669 kg [facility] BMI 2021-12-30 17:04:00 21.39 kg/m2 [facility] Body temperature 2021-10-20 20:30:00 36.44 Maci [facility] Respiratory rate 2021-10-20 20:30:00 22 /min [facility] Oxygen saturation in 2021-10-20 20:30:00 98 /min [facility] Arterial blood by Pulse oximetry Procedures Procedure Date / Time Performing Source Performed Clinician US RENAL 2022-01-04 Red Gunn 19:58:34 M. [facility] SURGICAL PATHOLOGY REQUEST 2021-10-20 Red Gunn [facility]OPH[facility]ODENOS[facility] (EGD) 2021-10-20 Red Gunn 18:43:00 M. Hospital COLONOSCOPY 2021-10-20 Red Gunnist 18:43:[address] M[address] [facility] CT ABDOMEN PELVIS W CONTRAST 2021-10-01 Gildardo Jonas hodist 18:53:52 [facility] CBC WITH PLATELET AND DIFFERENTIAL 2021-09-22 Jessie Jonas Gnosticist 19:04:00 [facility] COMPREHENSIVE METABOLIC PANEL 2021-09-22 Gildardo Jonas Me thodist 19:04:00 [facility] C-REACTIVE PROTEIN 2021-09-22 Gildardo Jonas Gnosticist 19:04:00 [facility] PHACOEMULSIFICATION OF CATARACT 2021-03-17 Kapil [facility] WITH INTRAOCULAR LENS IMPLANT 16:26:00 A [facility] ASSIGNMENT OF BENEFITS 2021-03-15 Doctor Universit y of 19:32:32 Unassigned, No [place] [facility] CONSENT/REFUSAL FOR DIAGNOSIS AND 2021-03-08 Doctor [facility] TREATMENT 22:21:02 Unassigned, No [place] [facility] CONSENT/REFUSAL FOR DIAGNOSIS AND 2021-03-08 Doctor University of TREATMENT 22:21:02 Unassigned, No [place] [facility] ASSIGNMENT OF BENEFITS 2021-03-08 Doctor Universit y of 22:20:45 Unassigned, No [place] [facility] ASSIGNMENT OF BENEFITS 2021-03-08 Doctor Universit y of 22:20:45 Unassigned, No [facility] NOTICE OF PRIVACY PRACTICES 2021-03-08 Doctor Univ ersity of 22:20:26 Unassigned, No [place] [facility] NOTICE OF PRIVACY PRACTICES 2021-03-08 Doctor Univ ersity of 22:20:26 Unassigned, No [place] [facility] CONSENT/REFUSAL FOR DIAGNOSIS AND 2021-03-08 Doctor University of TREATMENT 22:20:10 Unassigned, No [place] [facility] CONSENT/REFUSAL FOR DIAGNOSIS AND 2021-03-08 Doctor University of TREATMENT 22:20:10 Unassigned, No [place] [facility] ASSIGNMENT OF BENEFITS 2021-03-08 Doctor Universit y of 22:19:51 Unassigned, No [place] [facility] ASSIGNMENT OF BENEFITS 2021-03-08 Doctor Universit y of 22:19:51 Unassigned, No [place] [facility] Plan of Care Planned Activity Planned Date Details Comments Source Future Scheduled 2022-05-25 Hepatitis C screening [facility] Test 03:31:17 (procedure) [code = 573539605] Future Scheduled 2022-05-25 BREAST CANCER [facility] Test 03:31:17 SCREENING [code = BREAST CANCER SCREENING] Future Scheduled 2022-05-25 SHINGLES VACCINES (1 [facility] Test 03:31:17 of 2) [code = SHINGLES VACCINES (1 of 2)] Future Scheduled 2022-05-25 65+ [facility]OCOCCAL [facility] Test 03:31:17 VACCINE (1 - PCV) [code = 65+ PNEUMOCOCCAL VACCINE (1 - PCV)] Future Scheduled 2022-05-25 COVID-19 VACCINE (4 - [facility] Test 03:31:17 Booster for Moderna series) [code = COVID-19 VACCINE (4 - Booster for Moderna series)] Future Scheduled 2022-05-25 INFLUENZA VACCINE [facility] Test 03:31:17 [code = INFLUENZA VACCINE] Future Scheduled 2022-05-25 COLONOSCOPY SCREENING [facility] Test 03:31:17 [code = COLONOSCOPY SCREENING] Encounters Start End Encounter Admission Attending Care Care Encounter Source Date/Time Date/Time Type Type Clinicians Facility Department ID 2021-04-13 Outpatient DAVID NIELSEN OPH [id number] Univers 02:43:45 IGLESIA [facility] 2022-01-04 2022-01-04 Hospital Velia, 1.2.840.1 [id number] Methodi 14:15:00 23:59:00 Encounter Red Mueller 46854.1.[address] 3.430.2.7 Hospit a .3.635797 l .8 2022-01-04 2022-01-04 Outpatient VELIA [facility] [id number] [place] 00:00:00 00:00:[address] 2022-01-04 2022-01-04 Travel 1.2.840.1 1.2.610.068 [id number] Methodi 00:00:00 00:00:[address] 3.430.2.7 0.2.7.3.698 spita .3.435033 084.8 l .8 2021-12-30 2021-12-30 Office [facility], 1.2.840.1 [id number] Methodi 12:00:00 12:41:30 Visit Red Mueller 81793.1.[address] 3.430.2.7 Hospit a .3.592007 l .8 2021-12-30 2021-12-30 Documentat [facility], 1.2.840.1 [id number] Methodi 00:00:00 00:00:00 ion Praveen 11938.1.[address] 3.430.2.7 Hospit a .3.986467 l .8 2021-12-30 2021-12-30 Travel 1.2.840.1 1.2.439.951 [id number] Methodi 00:00:00 00:00:[address] 3.430.2.7 0.2.7.3.698 spita .3.101025 084.8 l .8 2021-12-30 2021-12-30 Outpatient VELIA [facility] [id number] [place] 00:00:00 00:00:00 RED [address] 2021-10-20 2021-10-20 [facility], 1.2.840.1 [id number] Methodi 12:36:00 15:40:00 Encounter Red Mueller 47855.1.[address] 3.430.2.7 Hospit a .3.429761 l .8 2021-10-20 2021-10-20 Surgery [facility], 1.2.840.1 [id number] Methodi 14:00:00 15:00:00 Red Mueller 15057.1.[address] 3.430.2.7 Hospit a .3.416440 l .8 2021-10-20 2021-10-20 Anesthesia Constantin Joyner 1.2.840 .1 [id number] Methodi 13:42:00 14:45:00 Event Steffanie Woodward 21611.1.[address] 3.430.2.7 Hospit a .3.953654 l .8 2021-10-20 2021-10-20 Travel 1.2.840.1 1.2.677.561 5722 [id number] Methodi 00:00:00 00:00:[address] 3.430.2.7 0.2.7.3.698 Ho spita .3.580645 084.8 l .8 2021-10-20 2021-10-20 Outpatient [facility] 021 [id number] [place] 00:00:00 00:00:[address] 2021-10-01 2021-10-01 [place] 37068.2.840.1 [id number] Methodi 12:15:08 23:59:00 Encounter Red Mueller 60427.1.[address] 3.430.2.7 Hospit a .3.333352 l .8 2021-10-01 2021-10-01 Travel 1.2.840.1 1.2.049.891 [id number] [id number] Methodi 00:00:00 00:00:[address] 3.430.2.7 0.2.7.3.698 Ho spita .3.836586 084.8 l .8 2021-10-01 2021-10-01 Outpatient [facility] [id number] [place] 00:00:00 00:00:[address] RED [address] 2021-09-28 2021-09-28 Travel 1.2.840.1 1.2.341.548 [id number] Methodi 00:00:00 00:00:[address] 3.430.2.7 0.2.7.3.698 Ho spita .3.696067 084.8 l .8 2021-09-23 2021-09-23 Orders [facility], 1.2.840.1 [id number] [id number] Methodi 00:00:00 00:00:00 Only Nuvia 84436.1.[address] 3.430.2.7 Hospit a .3.132986 l .8 2021-09-23 2021-09-23 Telephone Velia, 1.2.840.1 [id number] Methodi 00:00:00 00:00:00 Red Mueller 23167.1.[address] 3.430.2.7 Hospit a .3.321960 l .8 2021-09-21 2021-09-21 Office Velia, 1.2.840.1 [id number] Methodi 16:30:00 17:05:23 Visit Red Mueller 63779.1.[address] 3.430.2.7 Hospit a .3.350638 l .8 2021-09-21 2021-09-21 Travel 1.2.840.1 1.2.710.291 7514 [id number] Methodi 00:00:00 00:00:[address] 3.430.2.7 0.2.7.3.698 Ho spita .3.571118 084.8 l .8 2021-09-21 2021-09-21 [facility] [id number] [place] 00:00:00 00:00:[address] 2021-09-15 2021-09-15 Telephone Parminder, 1.2.840.1 [id number] 2099 [id number] Methodi 00:00:00 00:00:[address] 3.430.2.7 Hospit a .3.420067 l .8 2021-09-01 2021-09-01 Telephone Parminder, 1.2.840.1 [id number] 2099 [id number] Methodi 00:00:00 00:00:[address] 3.430.2.7 Hospit a .3.838984 l .8 2021-03-17 2021-03-17 Hospital [facility] 1.2.138.318 [id number] Univers 09:50:00 12:33:00 Encounter Iglesia Castanon 350.1.13.10 [place] [id number] [facility] 071 Branch 2021-03-17 2021-03-17 Surgery [facility] 1.2.840.114 [id number] Univers 11:33:00 12:16:00 Iglesia Castanon 350.1.13.10 [place] [id number] [facility] 020 Branch 2021-03-15 2021-03-15 [facility] [id number] Univers 15:00:00 15:00:00 [facility] 2021-03-15 2021-03-15 Orders Doctor JACK 1.2.840.114 [id number] Univers 00:00:00 00:00:00 Only Unassigned, FLORECITA 350.1.13.10 ity of [facility] 4.2.7.2.686 [place] as [id number] [place] [address] Branch 2021-03-08 2021-03-08 Survey Technologist Yenni, Adc Lab Main [facility] 1.2.8 40.114 [id number] Univers 17:20:52 17:35:52 Visit Kapil Iglesia [facility] 350.1.13.1 0 [place]2.[place] [id number] Va dical nal 353 Branch [facility] 2021-03-08 2021-03-08 [facility] [id number] Univers 16:30:00 16:30:00 IGLESIA jaime [facility] 2019-12-03 2019-12-03 Outpatient G_Pappas [facility] [id number] [place] 11:47:00 11:47:00 0623 [facility] Results Test Description Test Time Test Comments Results Result Comments Source Surgical pathology request 2021-10-22 19:58:36 Test Item Value Reference Range Interpretation Comme nts Case number (test code = [id number]) [id number] Surgical pathology report (test code = See link below for PDF Lab R eport 2258) Result status (test code = 8363217) This is Final Report for [id number] [facility]-reactive [id number] 19:21:00 Test Item Value Reference Range Interpretation Comments CRP (test 3.7 mg/L See_Comment [Automated mes pierce] code = The system ic h 1987-10) generated this result transmit amari reference range : <=8.0. The refe rence range was not u sed to interpret th is result as normal/abnormal . SABINO (test FASTING:NO FASTING: code = SABINO) NO RAC (test Performing code = RAC) Organization Information: Site ID: RGA Name: [facility] Address: [address] [place] [phone] Director: Jasper Amaro [facility] with platelet and [id number] 19:21:00 Test Item Value Reference Range Interpretation Comments WBC (test code = 5.8 See_Comment [Automated 4290-2) message] The system which generated this result transmitted reference range : 3.8 - 10.8 Thousand/uL. Th e reference range was not used to interpret this result as normal/abnormal . RBC (test code = 3.97 See_Comment [Automated 559-8) message] The system which generated this result transmitted reference range : 3.80 - 5.10 Million/uL. The reference range was not used to interpret this result as normal/abnormal . HGB (test code = 11.8 g/dL 11.7-15.5 718-7) HCT (test code = 35.5 % 35.0-45.0 4544-3) MCV (test code = 89.4 fL 80.0-100.0 787-2) MCH (test code = 29.7 pg 27.0-33.0 785-6) MCHC (test code = 33.2 g/dL 32.0-36.0 786-4) RDW (test code = 14.2 % 11.0-15.0 788-0) Platelet count 357 See_Comment [Automated (test code = message] The 777-3) system which generated this result transmitted reference range : 140 - 400 Thousand/uL. Th e reference range was not used to interpret this result as normal/abnormal . MPV (test code = 10.9 fL 7.5-12.5 776-5) Neutrophils, 3271 See_Comment [Automated absolute (test message] The code = 751-8) system which generated this result transmitted reference range : 1,500 - 7,800 cells/uL. The reference range was not used to interpret this result as normal/abnormal . Lymphocytes, 1897 See_Comment [Automated absolute (test message] The code = 731-0) system which generated this result transmitted reference range : 850 - 3,900 cells/uL. The reference range was not used to interpret this result as normal/abnormal . Monocytes, 539 See_Comment [Automated absolute (test message] The code = 742-7) system which generated this result transmitted reference range : 200 - 950 cells/uL. The reference range was not used to interpret this result as normal/abnormal . Eosinophils, 52 See_Comment [Automated absolute (test message] The code = 711-2) system which generated this result transmitted reference range : 15 - 500 cells/uL. The reference range was not used to interpret this result as normal/abnormal . Basophils, 41 See_Comment [Automated absolute (test message] The code = 704-7) system which generated this result transmitted reference range : 0 - 200 cells/u L. The reference range was not used to interpr et this result as normal/abnormal . Neutrophils (test 56.4 % code = 770-8) Lymphocytes (test 32.7 % code = 736-9) Monocytes (test 9.3 % code = 5905-5) Eosinophils (test 0.9 % code = 713-8) Basophils + RC 0.7 % (test code = 706-2) SABINO (test code = FASTING:NO FASTING: SABINO) NO RAC (test code = Performing RAC) Organization Information: Site ID: RGA Name: [facility] Address: [address] [place] [phone] Director: Jasper Amaro [facility] [id number] 19:21:00 Test Item Value Reference Interpretation Comments Range Glucose (test code 73 mg/dL 65-139 Non-fast ing = 2345-7) reference inter linda BUN (test code = 22 mg/dL 7-25 3094-0) Creatinine (test 1.06 mg/dL 0.50-0.99 H For patient s >49 code = 2160-0) years of age, the reference limit for Creatinine is approximately 1 3% higher for peopleidentifie d as -Christine n. EGFR Non-Afr. 54 See_Comment L [Automated me ssage] Jamaican (test code The syst em which = 1605) generated this result transmit amari reference range : > OR = 60 mL/min/1.73m2. The reference range was not used to interpret this result as normal/abnormal . EGFR 62 See_Comment [Automated mes pierce] Jamaican (test code The syst em which = 0906) generated this result transmit amari reference range : > OR = 60 mL/min/1.73m2. The reference range was not used to interpret this result as normal/abnormal . BUN/creatinine 21 See_Comment [Automated m essage] ratio (test code = The syste m which 3097-3) generated this result transmit amari reference range : 6 - 22 (calc). The reference range was not used to interpret this result as normal/abnormal . Sodium (test code = 141 mmol/L 237-084 6007-2) Potassium (test 3.4 mmol/L 3.5-5.3 L code = 2823-3) Chloride (test code 106 mmol/L 98-110 = 2075-0) CO2 (test code = 26 mmol/L 20-32 8-9) Calcium (test code 9.7 mg/dL 8.6-10.4 = 88433-7) Protein (test code 6.9 g/dL 6.1-8.1 = 2885-2) Albumin, S (test 4.1 g/dL 3.6-5.1 code = 1751-7) Globulin, total 2.8 See_Comment [Automated message] (test code = [place] [address]-6) generated this result transmit amari reference range : 1.9 - 3.7 g/dL ([place] c). The reference r josé was not used to interpret this result as normal/abnormal . Albumin/globulin 1.5 See_Comment [Automated message] ratio (test code = The syste m which 1759-0) generated this result transmit amari reference range : 1.0 - 2.5 (calc). T he reference range was not used to interpret this result as normal/abnormal . Total bilirubin 0.5 mg/dL 0.2-1.2 (test code = 1974-2) Alkaline 64 U/L 37-153 phosphatase (test code = 6768-6) AST (test code = 19 U/L 10-35 1920-8) ALT (test code = 12 U/L 6-29 1742-6) SABINO (test code = FASTING:NO SABINO) FASTING: NO RAC (test code = Performing RAC) Organization Information: Site ID: RGA Name: [facility] Address: [address] [place] [phone] Director: Jasper Amaro Lab Interpretation Abnormal (test code = 01614-8) [facility]
[2022-07-13] MEDS ORDERED: ONDANSETRON 4 MG/2 ML VIAL ONE (19:22)
[2022-07-13] MEDS ORDERED: MORPHINE 4 MG/ML SYR ONE (19:22)
[2022-07-13] MEDS ORDERED: NA CHLORIDE 0.9% 1,000 ML ONE (19:22)
--- NOTE | 2022-07-13 19:55 | RAD REPORT ---
EXAM DESCRIPTION: CT - Abdomen Pelvis Wo Contrast - 07/13/2022 7:44 pm CLINICAL HISTORY: Abdominal pain /flank pain COMPARISON: 2019 TECHNIQUE: Computed axial tomography of the abdomen and pelvis was obtained. IV and oral contrast we re not requested. All CT scans are performed using dose optimization technique as appropriate and may include automated exposure control or mA/KV adjustment according to patient size. FINDINGS: The evaluation of solid organs, vessels and bowel is limited secondary to the lack of con trast administration. A small to moderate hiatal hernia Small hepatic cysts Spleen, pancreas, adrenals and right kidney are grossly normal. 5.6 centimeter left renal cyst has enlarged. Hysterectomy. No adnexal mass Gastric stimulator in place. Cholecystectomy IMPRESSION: No acute abnormality is displayed.
[2022-07-13 20:22] LABS: Hematocrit 36.4 % (36.0-45.0); Lymphocytes % 14.7 % (15.3-44.8); MPV 8.1 fL (7.6-11.3); RBC Red Blood Cell Count 3.96 M/uL (3.86-4.86)
[2022-07-13 20:41] LABS: Albumin 3.7 g/dL (3.4-5.0); Bilirubin Total 0.4 mg/dL (0.2-1.0); Magnesium 2.5 mg/dL (1.6-2.4); Potassium 3.6 mmol/L (3.5-5.1); Protein, Total 7.6 g/dL (6.4-8.2); Troponin High Sensitivity 7.5 pg/mL (<58.9)
[2022-07-13 21:26] LABS: Urine Blood Trace-intact (Negative); Urine Glucose Negative (Negative); Urine Protein Negative (Negative); Urine Specific Gravity >=1.030 (1.005-1.030)
[2022-07-13 21:39] LABS: Urine Bacteria None Seen /HPF (<20); Urine Crystals Unidentified Few /HPF (None Seen); Urine Mucus 1+ /HPF (None Seen); Urine RBC <5 /HPF (None Seen)
--- NOTE | 2022-07-13 21:57 | EDPHYS ---
Physician Documentation [facility] Name: Antionette Choe Age: 72 yrs Sex: Female : 1950 Arrival Date: 07/13/2022 Time: 17:39 Bed 5 Private MD: ED Physician Eric Reich HPI: 07/14 00:20 This 72 yrs old Female presents to ER via Ambulatory with complaints of Passed Out rt Prior To Arrival, Possible Kidney Stone, Nausea/Vomiting. 00:20 Patient presents to the ED with a left flank pain, aching in nature that radiates to rt the lower abdominal region for the past 3 days. Patient had a syncopal event however preceded by lightheadedness that occurred at [facility] while she was walking. She did not hit her head, her family member eased her to the ground. She reported having nausea and vomiting following that. She reported hematuria. Denies other acute complaints at this time. Symptoms are moderate in severity, no other aggravating or relieving factors.. Historical: - Allergies: 07/13 17:47 meperidine HCl; ll1 17:47 latex; ll1 17:47 Cephalexin Monohydrate; ll1 - PMHx: 17:47 gastroparesis; ll1 - PSHx: 17:47 stomach pacemaker; ll1 - Immunization history:: Client reports receiving the 2nd dose of the Covid vaccine. - Social history:: Smoking status: Patient denies any tobacco usage or history of. - Family history:: not pertinent. ROS: 07/14 00:20 Constitutional: Negative for fever, chills, and weight loss, Cardiovascular: Negative rt for chest pain, palpitations, and edema, Respiratory: Negative for shortness of breath, cough, wheezing, and pleuritic chest pain. MS/Extremity: Negative for injury and deformity, Skin: Negative for injury, rash, and discoloration, Psych: Negative for depression, anxiety, suicide ideation, homicidal ideation, and hallucinations. Abdomen/GI: Positive for nausea, vomiting. Back: Positive for flank pain, Negative for injury or acute deformity. Neuro: Positive for syncope, Negative for altered mental status. Exam: 00:20 Constitutional: This is a well developed, well nourished patient who is awake, alert, rt and in no acute distress. Head/Face: Normocephalic, atraumatic. Eyes: Pupils equal round and reactive to light, extra-ocular motions intact. Lids and lashes normal. Conjunctiva and sclera are non-icteric and not injected. Cornea within normal limits. Periorbital areas with no swelling, redness, or edema. Chest/axilla: Normal chest wall appearance and motion. Nontender with no deformity. No lesions are appreciated. Cardiovascular: Regular rate and rhythm with a normal S1 and S2. No gallops, murmurs, or rubs. Normal PMI, no JVD. No pulse deficits. Respiratory: Lungs have equal breath sounds bilaterally, clear to auscultation and percussion. No rales, rhonchi or wheezes noted. No increased work of breathing, no retractions or nasal flaring. Abdomen/GI: Soft, non-tender, with normal bowel sounds. No distension or tympany. No guarding or rebound. No evidence of tenderness throughout. Skin: Warm, dry with normal turgor. Normal color with no rashes, no lesions, and no evidence of cellulitis. MS/ Extremity: Pulses equal, no cyanosis. Neurovascular intact. Full, normal range of motion. Neuro: Awake and alert, GCS 15, oriented to person, place, time, and situation. Cranial nerves II-XII grossly intact. Motor strength 5/5 in all extremities. Sensory grossly intact. Cerebellar exam normal. Normal gait. Psych: Awake, alert, with orientation to person, place and time. Behavior, mood, and affect are within normal limits. 00:20 ECG was reviewed by the Attending Physician. Vital Signs: 07/13 17:45 BP 122 / 78; Pulse 94; Resp 17; Temp 97.6; Pulse Ox 100% ; Weight 49.44 kg; Height 5 ll1 ft. 0 in. (152.40 cm); Pain 7/10; 20:00 BP 122 / 79; Pulse 89; Resp 18; Pulse Ox 99% on R/A; eh3 21:00 BP 125 / 77; Pulse 87; Resp 18; Pulse Ox 100% on R/A; eh3 17:45 Body Mass Index 21.29 (49.44 kg, 152.40 cm) ll1 MDM: 19:04 Patient medically screened. rt 07/14 00:20 Differential Diagnosis: Pyelonephritis, renal colic, dysrhythmia, hypovolemia, ACS. rt Data reviewed: vital signs, nurses notes, lab test result(s), EKG, radiologic studies. I considered the following discharge prescriptions or medication management in the emergency department Medications were administered in the Emergency Department. See MAR. ED course: Symptoms resolved in the ED, unremarkable labs. Patient instructed to follow-up for hematuria for outpatient follow-up. She states that she feels well, is comfortable discharge. Return precautions discussed. 07/13 19:11 Order name: CBC with Diff; Complete Time: 20:44 rt 07/13 19:11 Order name: CMP; Complete Time: 20:44 rt 07/13 19:11 Order name: Troponin High Sensitivity; Complete Time: 20:44 rt 07/13 19:11 Order name: Magnesium; Complete Time: 20:44 rt 07/13 21:20 Order name: UA MICROSCOPIC; Complete Time: 21:48 rt 07/13 21:27 Order name: Urine Dipstick-Ancillary; Complete Time: 21:48 EDMS 07/13 19:11 Order name: Urine Dipstick-Ancillary (obtain specimen); Complete Time: 21:25 rt 07/13 19:11 Order name: CT Abd/Pelvis - Without Cont (PO Contrast Only); Complete Time: 20:12 rt 07/13 19:18 Order name: EKG; Complete Time: 19:19 rt 07/13 19:18 Order name: EKG - Nurse/Tech; Complete Time: 21:13 rt EC:20 Rate is 87 beats/min. Rhythm is regular, Normal Sinus Rhythm with No ectopy. QRS [place] rt is Normal. NH interval is normal. QRS interval is normal. QT interval is normal. No Q waves. T waves are Normal. No ST changes noted. Interpreted by me. Administered Medications: 07/13 20:00 Drug: NS 0.9% 1000 ml Route: IV; Rate: 1 bolus; Site: right antecubital; 3 22:00 Follow up: IV Status: Completed infusion; IV Intake: 700ml eh3 20:00 Drug: morphine 4 mg Route: IVP; Infused Over: 4 mins; Site: right antecubital; 3 21:00 Follow up: Response: Pain is decreased eh3 20:00 Drug: Zofran (Ondansetron) 4 mg Route: IVP; Site: right antecubital; 3 21:00 Follow up: Response: No adverse reaction eh3 Disposition Summary: 07/13/22 21:57 Discharge Ordered Location: Home rt Problem: new rt Symptoms: have improved rt Condition: Stable rt Diagnosis - syncope rt - Hematuria, unspecified rt Followup: rt - With: Private Physician - When: 2 - 3 days - Reason: Continuance of care Followup: rt - With: Mateo Das MD - When: 5 - 6 days - Reason: Discharge Instructions: - Discharge Summary Sheet rt - Hematuria, Adult rt - Syncope rt Forms: - Medication Reconciliation Form rt - Thank You Letter rt - Antibiotic Education rt - Prescription Opioid Use rt Signatures: Dispatcher [employer] EDDiana Talbot RN RN ll1 Gilda Jimenez RN RN eh3 Eric Reich MD MD rt
--- NOTE | 2022-07-13 21:57 | ER ---
Nurse's Notes [facility] Name: Antionette Choe Age: 72 yrs Sex: Female : 1950 Arrival Date: 07/13/2022 Time: 17:39 Bed 5 Private MD: Diagnosis: syncope;Hematuria, unspecified Presentation: 07/13 17:45 Chief complaint: Patient states: L flank pain with dysuria for 3 days. Had a syncopal ll1 event at [facility] just [employer]. Started N/V afterwards. Coronavirus screen: Vaccine status: Patient reports receiving the 2nd dose of the covid vaccine. Client denies travel out of the [place] in the last 14 days. Ebola Screen: Patient denies travel to an Ebola-affected area in the 21 days before illness onset. Initial Sepsis Screen: Does the patient meet any 2 criteria? No. Patient's initial sepsis screen is negative. Does the patient have a suspected source of infection? Yes: Dysuria/Frequency/Urgency/UTI. Risk Assessment: Do you want to hurt yourself or someone else? Patient reports no desire to harm self or others. Onset of symptoms was July 11, 2022. 17:45 Method Of Arrival: Ambulatory ll1 17:45 Acuity: YAHIR 2 ll1 Triage Assessment: 17:48 General: Appears uncomfortable, ill, Behavior is calm, cooperative, appropriate for ll1 age. Pain: Complains of pain in L flank Quality of pain is described as aching, throbbing. Neuro: Reports a syncopal episode weakness. GI: Reports lower abdominal pain, upper abdominal pain, diarrhea, nausea, vomiting. Historical: - Allergies: 17:47 meperidine HCl; ll1 17:47 latex; ll1 17:47 Cephalexin Monohydrate; ll1 - PMHx: 17:47 gastroparesis; ll1 - PSHx: 17:47 stomach pacemaker; ll1 - Immunization history:: Client reports receiving the 2nd dose of the Covid vaccine. - Social history:: Smoking status: Patient denies any tobacco usage or history of. - Family history:: not pertinent. Screenin:00 [facility] ED Fall Risk Assessment (Adult) History of falling in the last 3 months, 3 including since admission Yes- physiologic fall (2 pts) Confusion or Disorientation No (0 pts) Intoxicated or Sedated No (0 pts) Impaired Gait No (0 pts) Mobility Assist Device Used No (0 pt) Altered Elimination Yes (1 pt) Score/Fall Risk Level 3 or more points = High Risk Oriented to surroundings, Maintained a safe environment, Educated pt \T\ family on fall prevention, incl call for assistance when getting out of bed, Assessed \T\ reinforced patient's understanding of fall precautions, Hourly rounding (assess needs \T\ fall precautionary measures) done, Utilized family, sitter, or virtual telephone sex worker as indicated. Abuse screen: Denies threats or abuse. Denies injuries from another. Nutritional screening: No deficits noted. Tuberculosis screening: No symptoms or risk factors identified. Assessment: 19:00 General: Appears in no apparent distress. uncomfortable, Behavior is cooperative, eh3 appropriate for age. Pain: Complains of pain in left flank. Neuro: Level of Consciousness is awake, alert, obeys commands, Oriented to person, place, time, situation. Cardiovascular: Capillary refill < 3 seconds Patient's skin is warm and dry. Respiratory: Airway is patent Respiratory effort is even, unlabored, Respiratory pattern is regular, symmetrical. GI: Abdomen is flat, non-distended, Bowel sounds present X 4 quads. Abdomen is tender to palpation in left upper quadrant and left lower quadrant Reports nausea. : Reports pain in left flank(s), with urination, bleeding with urination. Derm: Skin is pink, warm \T\ dry. Musculoskeletal: Circulation, motion, and sensation intact. Range of motion: intact in all extremities. 20:00 Reassessment: Patient appears in no apparent distress at this time. Patient and/or eh3 family updated on plan of care and expected duration. Pain level reassessed. Patient is alert, oriented x 3, equal unlabored respirations, skin warm/dry/pink. 21:00 Reassessment: Patient appears in no apparent distress at this time. Patient and/or eh3 family updated on plan of care and expected duration. Pain level reassessed. Patient is alert, oriented x 3, equal unlabored respirations, skin warm/dry/pink. Patient states symptoms have improved. Vital Signs: 17:45 BP 122 / 78; Pulse 94; Resp 17; Temp 97.6; Pulse Ox 100% ; Weight 49.44 kg; Height 5 ll1 ft. 0 in. (152.40 cm); Pain 7/10; 20:00 BP 122 / 79; Pulse 89; Resp 18; Pulse Ox 99% on R/A; eh3 21:00 BP 125 / 77; Pulse 87; Resp 18; Pulse Ox 100% on R/A; eh3 17:45 Body Mass Index 21.29 (49.44 kg, 152.40 cm) ll1 ED Course: 17:39 Patient arrived in ED. as 17:47 Triage completed. ll1 17:48 Arm band placed on. ll1 18:59 Eric Reich MD is Attending Physician. rt 19:00 Patient has correct armband on for positive identification. Bed in low position. Call eh3 light in reach. Side rails up X2. Adult w/ patient. Pulse ox on. NIBP on. Door closed. Noise minimized. Lights dimmed. Warm blanket given. 19:11 Gilda Jimenez, RN is Primary Nurse. eh3 19:46 CT Abd/Pelvis - Without Cont (PO Contrast Only) In Process Unspecified. EDMS 21:25 UA MICROSCOPIC Sent. lg3 21:56 Mateo Das MD is Referral Physician. rt 22:23 No provider procedures requiring assistance completed. IV discontinued, intact, eh3 bleeding controlled, No redness/swelling at site. Pressure dressing applied. Administered Medications: 20:00 Drug: NS 0.9% 1000 ml Route: IV; Rate: 1 bolus; Site: right antecubital; eh3 22:00 Follow up: IV Status: Completed infusion; IV Intake: 700ml eh3 20:00 Drug: morphine 4 mg Route: IVP; Infused Over: 4 mins; Site: right antecubital; eh3 21:00 Follow up: Response: Pain is decreased eh3 20:00 Drug: Zofran (Ondansetron) 4 mg Route: IVP; Site: right antecubital; eh3 21:00 Follow up: Response: No adverse reaction eh3 Medication: 22:23 VIS not applicable for this client. eh3 Intake: 22:00 IV: 700ml; Total: 700ml. eh3 Outcome: 21:57 Discharge ordered by . rt 22:23 Discharged to home ambulatory, with significant other. eh3 22:23 Condition: stable 22:23 Discharge instructions given to patient, Instructed on discharge instructions, follow up and referral plans. Demonstrated understanding of instructions, follow-up care. 22:24 Patient left the ED. eh3 Signatures: Dispatcher [employer] EDMargot Gordillo Lacie, RN RN lg3 Diana Diamond RN RN ll1 Gilda Jimenez RN RN eh3 Eric Reich MD MD rt
[2022-07-13 22:46] VITALS: TEMP 97.6
[2022-07-13 22:49] VITALS: BP 125/77; O2SAT 100
== END 2022-07-13 22:24 | disposition home or self-care (01) ==
LOC: ER 17:38
DX: R55 Syncope and collapse (principal); R31.9 Hematuria, unspecified; R10.9 Unspecified abdominal pain; K31.84 Gastroparesis; Z88.8 Allergy status to other drugs, medicaments and biological substances; Z91.040 Latex allergy status
CPT/HCPCS: 85025; 36415; 83735; 84484; 80053; 74176; J7030; J2405; 81003; 81015; 93005

== ENCOUNTER 2022-08-24 10:00 | Emergency (ER) | payer OTHER ==
--- OUTSIDE RECORDS SUMMARY | 2022-08-24 10:05 | XMS REPORT | Continuity of Care Document ---
:1950 Author Organization [facility] t Address [address] [place] [address] Eric. [address] [place] [address] Care Team Providers Name Role Phone Chema ROD, Jace Primary Care Physician IGLESIA DICK Attending Clinician Unavailable Red Gunn MD Attending Clinician Parminder DANIEL, Praveen Attending Clinician Unavailable Ar ROD, Constantin Scherer Attending Clinician [phone] Crissy REDMAN, Steffanie Attending Clinician Emerita DANIEL, Nuvia Attending Clinician Unavailable Iglesia Dick MD Attending Clinician Doctor Unassigned, [place] Attending Clinician Unavailable Pob, Adc Lab Main Attending Clinician Unavailable Jesse Attending Clinician Unavailable IGLESIA DICK Admitting Clinician Unavailable RED GUNN Admitting Clinician Unavailable Iglesia Dick MD Admitting Clinician Jesse Admitting Clinician Unavailable Payers Payer Name Policy Type Policy Number Effective Date Expiration Date [place] hendrickson MEDICARE PART A [id number] 2017 \\T\\ B 00:00:00 [place] [id number] 2014 [place] (PPO) 00:00:00 Problems Condition Condition [...] Date Source Natural brother Heart disease [facility] Natural brother Hernia [facility] Natural brother [facility] Natural father Heart disease [facility] father Hypertension [facility] Natural mother Hernia [facility] Natural sister Hernia [facility] Natural sister Hypertension [facility] Social History Social Habit Start Date Stop Date Quantity Comments Source Exposure to Not sure [facility] SARS-CoV-2 [place] [facility] (event) [facility] Alcohol intake 2021-12-30 2021-12-30 Current drinker [facility] 00:00:00 00:00:00 of alcohol (finding) Alcohol Comment 2017-09-07 2017-09-07 seldom [facility] 00:00:00 00:00:00 Tobacco use and 2017-07-04 2017-07-04 Smokeless tobacco [facility] exposure 00:00:00 00:00:00 non-user Sex Ass[birth year] [facility] 00:00:00 00:00:00 Smoking Status Start Date Stop Date Source Never smoked tobacco [facility] Medications Ordered Filled Start Stop Current [...] 15 daily l capsule before breakfast. gabapentin Yes 100mg Q.[id number] Take 100 Methodi (NEURONTIN) 7-21 [id number] mg by s t 100 mg 12:07: 3D mouth 3 Hospita capsule 15 (three) l times a day. methocarbam 2022-0 Yes 500mg Q.[id number] Take 500 Methodi oL 7-[id number] (ROBAXIN) 12:07: 3D mouth 3 Hospi ta 500 MG 15 (three) l tablet times a day. hyoscyamine 2021-0 Yes .125mg Q4H Take 0.125 Methodi (LEVSIN) 7-[address] 0.125 mg SL 12:07: mouth Hospi ta tablet 15 every 4 l (four) hours as needed for cramping. traMADoL 2021-0 Yes [id number] 50mg Q6H Take 50 mg Me thodi (ULTRAM) 50 7-[address] mg tablet 12:07: every 6 Hospi ta 15 (six) l hours as needed for moderate pain .acute pain. sucralfate 2021-0 Yes 1g QD Take 1 g Met hodi (CARAFATE) 7-[address] 1 gram 12:07: daily. Hospita tablet 15 l SUMAtriptan 2021-0 Yes 100mg Take 100 M ethodi (IMITREX) 7-[address] 100 MG 12:07: mouth once Hospi ta tablet 15 as needed l for migraine. May repeat in 2 hours if unresolved . Do not exceed 200 mg in 24 hours. promethazin 2021-0 Yes 12.5mg Q12H Take 12.5 Methodi e 7-[address] (PHENERGAN) 12:07: mouth Hospi ta 12.5 MG 15 every 12 l tablet (twelve) hours as needed for nausea or vomiting. ondansetron 2021-0 Yes 4mg Q4H Take 4 mg M ethodi (ZOFRAN) 4 7-[address] MG tablet 12:07: every 4 Hospi ta 15 (four) l hours as needed for nausea or vomiting. simethicone 2021-0 Yes Take by Met hodi (GAS-X 7-[address] ORAL) 12:07: needed. Hospita 15 l fenofibrate 2021-0 Yes 134mg QD Take 134 M ethodi micronized 7-[address] (LOFIBRA) 12:07: mouth Hospita 134 MG 15 daily l capsule before breakfast. gabapentin 2021-0 Yes 100mg Q.[id number] Take 100 Methodi (NEURONTIN) 7-21 [id number] mg by s t 100 mg 12:07: 3D mouth 3 Hospita capsule 15 (three) l times a day. methocarbam 202-0 Yes 500mg Q.[id number] Take 500 Methodi oL 7-[id number] (ROBAXIN) 12:07: 3D mouth 3 Hospi ta 500 MG 15 (three) l tablet times a day. hyoscyamine 2021-0 Yes .125mg Q4H Take 0.125 Methodi (LEVSIN) 7-[address] 0.125 mg SL 12:07: mouth Hospi ta tablet 15 every 4 l (four) hours as needed for cramping. traMADoL 2021-0 Yes [id number] 50mg Q6H Take 50 mg Me thodi (ULTRAM) 50 7-[address] mg tablet 12:07: every 6 Hospi ta 15 (six) l hours as needed for moderate pain .acute pain. sucralfate 2021-0 Yes 1g QD Take 1 g Met hodi (CARAFATE) -[address] 1 gram 12:07: daily. Hospita tablet 15 l pantoprazol 2021-0 Yes Method i e 12-07 st (PROTONIX) 00:00: Hospita 40 MG EC 00 l tablet pantoprazol 2021-0 Yes Method i e 12-07 st (PROTONIX) 00:00: Hospita 40 MG EC 00 l tablet acetaminoph 2021-0 Yes 500mg Q6H Take 500 M ethodi en 5-[address] (TYLENOL) 15:40: mouth Hospita 500 MG 47 every 6 l tablet (six) hours as needed for mild pain. acetaminoph 2022-0 Yes 500mg Q6H Take 500 M ethodi en 5-[address] (TYLENOL) 15:40: mouth Hospita 500 MG 47 every 6 l tablet (six) hours as needed for mild pain. sodium,pota 2021-0 Yes Drink 1 Met hodi ssium,mag 4-[address] sulfates 00:00: directed Hospi ta (SUPREP) 00 for dose 1 l 17.5-3.13-1 and 1 .6 gram bottle as recon soln directed for dose 2. sodium,pota Yes Drink 1 Met hodi ssium,mag 4-[address] sulfates 00:00: directed Hospi ta (SUPREP) 00 for dose 1 l 17.5-3.13-1 and 1 .6 gram bottle as recon soln directed for dose 2. ceFAZolin 2020-06 Yes PRN, Univers (ANCEF) 0-06 Starting ity of injection 16:58: on Mon 00 03/17/21 at Medical 1158, [place] Until Discontinu ed, JUSTYN, Intra-op ceFAZolin 2020-06 No PRN, Univers (ANCEF) 0-06 10-06 Starting ity of injection 16:58: 19:34 on Mon 00 :41 03/17/21 at Medical 1158, Branch Until Mon03/17/21 at 1434, JUSTYN, Intra-op water for 2020-06 Yes PRN, Univers irrigation 0-06 Starting ity o f irrigation 16:57: on Mon [place] solution 00 03/17/21 at Medic al 1157, [place] Until Discontinu ed, Routine, Intra-op water for 2020-06 No PRN, Univers irrigation 0-06 10-06 Starting ity of irrigation 16:57: 19:34 on [place] solution 00 :41 03/17/21 at Medic al 1157, Branch Until Mon03/17/21 at 1434, Routine, Intra-op sodium 2020-06 Yes PRN, Univers chloride 0-06 Starting ity of (NS) 16:56: on Mon [place] injection 00 03/17/21 at [facility] [place] 1156, [place] Until Discontinu ed, Routine, Intra-op neomycin-po 2020-06 Yes PRN, Univer s lymyxin-dex 0-06 Starting ity of amethasone 16:56: on Mon (MAXITROL) 00 03/17/21 at [facility] ical 3.5 [facility]6, [place] mg/g-10,000 Until unit/g-0.1 Discontinu % ed, ophthalmic Routine, ointment Intra-op dexamethaso 2020-06 Yes PRN, Univer s ne 0-06 Starting ity of (DECADRON 16:56: on Mon [place] PHOSPHATE) 00 03/17/21 at [facility] ical injection 1156, Branch Until Discontinu ed, Routine, Intra-op sodium 2020-06- No PRN, Univers chloride 0-06 10-06 Starting ity of (NS) 16:56: 19:34 on Mon [place] injection 00 :41 03/17/21 at Medi [place] 1156, Branch Until Mon03/17/21 at 1434, Routine, Intra-op neomycin-po 2020-06- No PRN, Unive rs lymyxin-dex 0-06 10-06 Starting ity of amethasone 16:56: 19:34 [place] (MAXITROL) 00 :41 03/17/21 at [facility] ical 3.5 1156, Branch mg/g-10,000 Until Mon [...] 16:55: on Mon (ADRENALIN) 00 03/17/21 at Ut dical injection 1155, Branch Until Discontinu ed, Routine, Intra-op DUOVISC 2020-06 Yes PRN, Univers (DUOVISC 0-06 Starting ity of VISCO 16:55: on Mon [place] ELASTIC) 3 00 03/17/21 at [facility] ical %-4 %(0.5 1155, Branch mL) 1 % Until (0.55 mL) Discontinu intraocular ed, injection Routine, Intra-op EPINEPHrine 2020-06- No PRN, Unive rs 1:1,000 (1 0-06 10-06 Starting ity of mg/mL) 16:55: 19:34 on Mon (ADRENALIN) 00 :41 03/17/21 at Ut dical injection 1155, Branch Until 03/17/21 at 1434, Routine, Intra-op DUOVISC 2020-06- No PRN, Univers (DUOVISC 0-06 10-06 Starting ity of VISCO 16:55: 19:34 on Wed [place] ELASTIC) 3 00 :41 03/17/21 at [facility] ica %-4 %(0.5 1155, Branch mL) 1 % Until Wed (0.55 mL) 03/17/21 at intraocular 1434, injection Routine, Intra-op carbachoL 2020-06 Yes PRN, Univers (MIOSTAT) 0-06 Starting ity of 0.01 % 16:54: on Wed [place] intraocular 00 03/17/21 at Ut dical injection 1154, Branch Until Discontinu ed, Routine, Intra-op carbachoL 2020-06- No PRN, Univers (MIOSTAT) 0-06 10-06 Starting ity o f 0.01 % 16:54: 19:34 on Mon [place] intraocular 00 :41 03/17/21 at Ut dical injection 1154, Branch Until Mon03/17/21 at 1434, Routine, Intra-op balanced 2020-06 Yes PRN, Univers salt irrig 0-06 Starting ity o f soln comb1 16:53: on Mon [place] (BSS PLUS) 00 03/17/21 at [facility] ical ophthalmic 1153, Branch solution Until 500 mL bag Discontinu ed, Routine, Intra-op balanced 2020-06- No PRN, Univers salt irrig 0-06 10-06 Starting ity of soln comb1 16:53: 19:34 on Mon [place] (BSS PLUS) 00 :41 03/17/21 at [facility] ical ophthalmic 1153, Branch solution Until Wed 500 mL bag 03/17/21 at 1434, Routine, Intra-op eye block 2020-06 Yes PRN, Univers syringe 11 0-06 Starting ity o f mL 16:40: on Wed [place] 00 03/17/21 at [facility] 1140, Branch Until Discontinu ed, Intra-op eye block 2020-06- No PRN, Univers syringe 11 0-06 10-06 Starting ity of mL 16:40: 19:34 on Mon [place] 00 :41 03/17/21 at Medical 1140, Branch Until Mon03/17/21 at 1434, Intra-op [...] On Mon03/17/21 at 1000, Routine, DSU Pre-op progesteron 2020-06 [...] ity o f mg tablet 12:34: at [place] 38 bedtime. Medical Branch estradiol 2020-06 Yes 1mg Take 1 mg Uni vers (ESTRACE) 1 0-06 by mouth ity of mg tablet 12:34: daily. [place] [address] Medical Branch traZODONE 2020-06 Yes 50mg Take [...] ity o f 60 mg 12:34: daily. [place] [address] Medical Branch SUMAtriptan 2020-06 Yes 50mg Take 50 mg Univers (IMITREX) 0-06 by mouth ity of 50 mg 12:34: once now. [place] [address] Medical Branch amLODIPine 2020-06 Yes 5mg Take 5 mg Un elodia (NORVASC) 5 0-06 by mouth ity of mg tablet 12:34: daily. [place] [address] Medical Branch losartan 2020-06 Yes 100mg Take 100 Univ ers (COZAAR) 0-06 mg by ity of 100 mg 12:34: mouth [place] tablet 38 daily. Medical Branch linaclotide 2020-06 Yes Take by Uni vers (LINZESS) 0-06 mouth. ity of 290 mcg Cap 12:34: [place] [address] Medical Branch progesteron 2020-06 Yes 200mg Take 200 U nivers e 0-06 mg by ity of (PROMETRIUM 12:34: mouth [place] ) 200 mg 38 daily. Medical capsule Branch mirabegron 2020-06 Yes Take by Univ ers (MYRBETRIQ) 0-06 mouth. ity of 25 mg 12:34: [place] [address] Medical Branch propranolol 2020-06 Yes 10mg Take [...] mouth ity of mg tablet 12:34: daily. [address] Branch traZODONE 2020-06 Yes 50mg Take 50 [...] ity o f 60 mg 12:34: daily. [place] [address] Medical Branch SUMAtriptan 2020-06 Yes 50mg Take 50 mg Univers (IMITREX) 0-06 by mouth ity of 50 mg 12:34: once now. [address] Branch amLODIPine 2020-06 Yes 5mg Take 5 mg Un elodia (NORVASC) 5 0-06 by mouth ity of mg tablet 12:34: daily. [place] [address] Medical Branch losartan 2020-06 Yes 100mg Take 100 Univ ers (COZAAR) 0-06 mg by ity of 100 mg 12:34: mouth [place] tablet 38 daily. Medical Branch linaclotide 2020-06 Yes Take by Uni vers (LINZESS) 0-06 mouth. ity of 290 mcg Cap 12:34: [address] LINZESS 290 0 Yes 290ug QD Take 1 Met hodi mcg capsule 2-[address] 00:00: (290 mcg Hospita 00 total) by l mouth nightly. LINZESS 290 Yes 290ug QD Take 1 Met hodi mcg capsule 2-[address] 00:00: (290 mcg Hospita 00 total) by l mouth nightly. prucaloprid 2018-06 Yes 2mg QD Take 2 mg M ethodi e 0-[address] (MOTEGRITY) 00:00: daily. [facility] 1 mg tablet 00 l prucaloprid 2018-06 Yes 2mg QD Take 2 mg M ethodi e 0-[address] (MOTEGRITY) 00:00: daily. [facility] 1 mg tablet 00 l propranolol 2016-06 Yes 40mg QD Take 40 mg Methodi (INDERAL) 2-[address] 40 MG 00:00: nightly. Hospita tablet 00 l propranolol 2016-06 Yes 40mg QD Take 40 mg Methodi (INDERAL) 2-[address] 40 MG 00:00: nightly. Hospita tablet 00 l ALPRAZolam 2016-06 Yes .25mg QD Take 0.25 M ethodi (XANAX) 2-[address] 0.25 MG 00:00: mouth Hospita tablet 00 nightly as l needed. ALPRAZolam 2016-06 Yes .25mg QD Take 0.25 M ethodi (XANAX) 2-[address] 0.25 MG 00:00: mouth Hospita tablet 00 nightly as l needed. simvastatin 2016-06 Yes 20mg QD Take 20 mg Methodi (ZOCOR) 20 2-[address] MG tablet 00:00: nightly. Hosp [facility] l traZODone 2016-06 Yes 100mg QD Take 100 Met hodi (DESYREL) 2-[address] 100 MG 00:00: mouth Hospita tablet 00 nightly. l simvastatin 2016-06 Yes 20mg QD Take 20 [...] tablet 00 times a l day. MYRBETRIQ 2016-06 Yes 25mg QD Take 25 mg Me thodi 25 mg 2-[address] tablet 00:00: nightly. Hospita extended 00 l release 24 hr losartan 2016-06 Yes 100mg QD Take 100 Meth brisa (COZAAR) 2-[address] 100 MG 00:00: mouth Hospita tablet 00 nightly. l DULoxetine 2016-06 Yes 60mg QD Take 60 mg M ethodi (CYMBALTA) [address] 60 MG 00:00: nightly. Hospita capsule 00 l topiramate 2016-06 Yes 25mg Q.5D Take 25 mg M ethodi (TOPAMAX) [address] 25 MG 00:00: (two) Hospita tablet 00 times a l day. MYRBETRIQ 2016-06 Yes 25mg QD Take 25 mg Me thodi 25 mg 2- by mouth st tablet 00:00: nightly. Hospita [...] Vasquez PA-C / Jasper Samuel MD ARIANA# [id number] DPS# [id number] x Lic.# [id number] NPI# [id number] cyclobenzap 2017-0 Yes 5mg Take 1 Univ [...] Vasquez PA-C / Jasper Samuel MD ARIANA# [id number] DPS# [id number] x Lic.# [id number] NPI# [id number] cyclobenzap 2017-0 Yes 5mg Take 1 Univ [...] Vasquez PA-C / Jasper Samuel MD ARIANA# [id number] DPS# [id number] x Lic.# [id number] NPI# [id number] cyclobenzap 2017-0 Yes 5mg Take 1 Univ [...] Vasquez PA-C / Jasper Samuel MD ARIANA# [id number] DPS# [id number] x Lic.# [id number] NPI# [id number] linaclotide 2016- Yes Take by Uni vers (LINZESS) 2-04 mouth. ity of 290 mcg Cap 23:27: [place] 03 Medical Branch linaclotide 2016- Yes Take by Uni vers (LINZESS) 2-04 mouth. ity of 290 mcg Cap 23:27: [place] 03 Medical Branch progesteron 2016- Yes 200mg Take 200 U nivers e [...] tablet 11 times Medical daily. Branch simvastatin Yes 20mg Take 20 mg Univers (ZOCOR) 20 3-10 by mouth ity o f mg tablet 12:48: at [place] 11 bedtime. Medical Branch estradiol Yes 1mg Take 1 mg Uni vers (ESTRACE) 1 3-10 by mouth ity of mg tablet 12:48: daily. [place] [address] Medical Branch traZODONE Yes 50mg Take 50 mg Un elodia (DESYREL) 3-10 by mouth ity of 50 mg 12:48: at [place] tablet 11 bedtime. Medical Branch esomeprazol Yes 40mg Take 40 mg Univers e (NEXIUM) 3-10 by mouth ity o f 40 mg 12:48: daily with [place] capsule 11 breakfast. Medica l Branch DULoxetine Yes 60mg Take 60 mg U nivers (CYMBALTA) 3-10 by mouth ity o f 60 mg 12:48: daily. [facility] [place] 11 Medical Branch SUMAtriptan Yes 50mg Take 50 mg Univers (IMITREX) 3-10 by mouth ity of 50 mg 12:48: once now. [place] [facility] 11 Medical Branch amLODIPine Yes 5mg Take 5 mg Un elodia (NORVASC) 5 3-10 by mouth ity of mg tablet 12:48: daily. [place] [address] Medical Branch losartan Yes 100mg Take 100 Univ ers (COZAAR) 3-10 mg by ity of 100 mg 12:48: mouth [place] tablet 11 daily. Medical Branch progesteron Yes 200mg Take 200 [...] ity o f mg tablet 12:48: at [place] 11 bedtime. Medical Branch estradiol 2016-0 Yes 1mg Take 1 mg Uni vers (ESTRACE) 1 3-10 by mouth ity of mg tablet 12:48: daily. [place] [address] Medical Branch traZODONE 2016-0 Yes 50mg Take 50 mg Un elodia (DESYREL) 3-10 by mouth ity of 50 mg 12:48: at [place] tablet 11 bedtime. Medical Branch esomeprazol 2015-0 Yes 40mg Take 40 mg Univers e (NEXIUM) 3-10 by mouth ity o f 40 mg 12:48: daily with [place] capsule 11 breakfast. Medica l Branch DULoxetine 0 Yes 60mg Take 60 mg U nivers (CYMBALTA) 3-10 by mouth ity o f 60 mg 12:48: daily. [place] [address] Medical Branch SUMAtriptan 0 Yes 50mg Take 50 mg Univers (IMITREX) 3-10 by mouth ity of 50 mg 12:48: once now. [place] [facility] 11 Medical Branch amLODIPine 0 Yes 5mg Take 5 mg Un elodia (NORVASC) 5 3-10 by mouth ity of mg tablet 12:48: daily. [place] [address] Medical Branch losartan 2015-0 Yes 100mg Take 100 Univ ers (COZAAR) 3-10 mg by ity of 100 mg 12:48: mouth [place] tablet 11 daily. Medical Branch aspirin 325 Yes 325mg Take 1 Tab Univers mg tablet 3-10 by mouth ity of 00:00: daily. [place] [facility] aspirin 325 2015-0 Yes 325mg Take 1 Tab Univers mg tablet 3-10 by mouth ity of 00:00: daily. [place] [facility] aspirin 325 2015-0 Yes 325mg Take 1 Tab Univers mg tablet 3-10 by mouth ity of 00:00: daily. [place] [facility] aspirin 325 2015-0 Yes 325mg Take 1 Tab Univers mg tablet 3-10 by mouth ity of 00:00: daily. [place] 00 Medical Branch ondansetron 2016-0 Yes 4mg Take 1 Tab [...] Date Status Commen ts Source Name Name [place] [address] 2021-05-12 Completed Methodis t MRNA VACCINATION 00:00:00 [place] [address] 2021-05-12 Completed Methodis t [facility]RNA VACCINATION 00:00:00 [facility] 2020-09-16 Completed Methodis t MRNA VACCINATION 00:00:00 [place] [address] 2020-09-16 Completed Methodis t MRNA VACCINATION 00:00:00 [place] [address] 2020-08-19 Completed Methodis t MRNA VACCINATION 00:00:00 [place] [address] 2020-08-19 Completed Methodis t MRNA VACCINATION 00:00:00 Hospital Vital Signs Vital Name Observation Time Observation Value Comments Source Systolic blood 2021-03-17 17:10:00 132 mm[Hg] Univer sity of pressure [facility] Diastolic blood 2021-03-17 17:10:00 70 mm[Hg] Unive rsity of [facility] Heart rate 2021-03-17 17:10:00 84 /min Universi ty of [place] [facility] Oxygen saturation in 2021-03-17 17:10:00 97 /min University of Arterial blood by [facility] [place] Pulse oximetry Branch Body temperature 2021-03-17 17:00:00 36.5 Maci Univ ersity of [facility] Respiratory rate 2021-03-17 15:01:00 16 /min Univ ersity [facility] Body height 2021-03-04 14:49:00 152.4 cm Universi ty of [place] [facility] [place] Body weight 2021-03-04 14:49:00 54.9 kg [facility]i ty [facility] [place] [facility] BMI 2021-03-04 14:49:00 23.64 kg/m2 Universi ty of [facility] Branch Systolic blood 2021-03-17 17:10:00 132 mm[Hg] Univer sity of pressure [facility] Diastolic blood 2021-03-17 17:10:00 70 mm[Hg] Unive rsity of pressure [facility] Heart rate 2021-03-17 17:10:00 84 /min [facility]i ty [facility] [place] [facility] Oxygen saturation in 2021-03-17 17:10:00 97 /min University of Arterial blood by [facility] Pulse oximetry Branch Body temperature 2021-03-17 17:00:00 36.5 Maci [facility] ersity [facility] Respiratory rate 2021-03-17 15:01:00 16 /min Univ ersity [facility] Body height 2021-03-04 14:49:00 152.4 cm [facility]i ty [facility] [place] [facility] [place] Body weight 2021-03-04 14:49:00 54.9 kg [facility]i ty [facility] [place] [facility] [place] BMI 2021-03-04 14:49:00 23.64 kg/m2 Universi ty [facility] Systolic blood 2021-12-30 17:04:00 124 mm[Hg] Method ist Hospital pressure Diastolic blood 2021-12-30 17:04:00 72 mm[Hg] [facility] pressure Heart rate 2021-12-30 17:04:00 81 /min [facility] Body height 2021-12-30 17:04:00 152.4 [facility] Body weight 2021-12-30 17:04:00 49.669 kg [facility] BMI 2021-12-30 17:04:00 21.39 kg/m2 [facility] Body temperature 2021-10-20 20:30:00 36.44 Maci [facility] Respiratory rate 2021-10-20 20:30:00 22 /min [facility] Oxygen saturation in 2021-10-20 20:30:00 98 /min [facility] Arterial blood by Pulse oximetry Procedures Procedure Date / Time Performing Source Performed Clinician US RENAL 2022-01-04 Red Gunn 19:58:34 M. Hospital SURGICAL PATHOLOGY REQUEST 2021-10-20 Red Gunno dist 19:55:00 M. [facility] ESOPHAGOGASTRODUODENOSCOPY (EGD) 2021-10-20 Red Gunn 18:43:00 M. Hospital COLONOSCOPY 2021-10-20 Red Gunn 18:43:[address] M[address] [facility] CT ABDOMEN PELVIS W CONTRAST 2021-10-01 Gildardo Jonas hodist 18:53:52 [facility] CBC WITH PLATELET AND DIFFERENTIAL 2021-09-22 Jsesie Jonas Jain 19:04:00 [facility] COMPREHENSIVE METABOLIC PANEL 2021-09-22 Gildardo Jonas Ut thodist 19:04:00 [facility] C-REACTIVE PROTEIN 2021-09-22 Gildardo Jonas Jain 19:04:00 [facility] PHACOEMULSIFICATION OF CATARACT 2021-03-17 [facility] WITH INTRAOCULAR LENS IMPLANT 16:26:00 Emma [facility] Medical Branch ASSIGNMENT OF BENEFITS 2021-03-15 Doctor Universit y of 19:32:32 Unassigned, No [place] [facility] Name Branch CONSENT/REFUSAL FOR DIAGNOSIS AND 2021-03-08 Doctor University of TREATMENT 22:21:02 Unassigned, No [place] [facility] Name Branch CONSENT/REFUSAL FOR DIAGNOSIS AND 2021-03-08 Doctor University of TREATMENT 22:21:02 Unassigned, No [place] [facility] Name Branch ASSIGNMENT OF BENEFITS 2021-03-08 Doctor Universit y of 22:20:45 Unassigned, No [place] [facility] Name Branch ASSIGNMENT OF BENEFITS 2021-03-08 Doctor Universit y of 22:20:45 Unassigned, No [place] [facility] Name Branch NOTICE OF PRIVACY PRACTICES 2021-03-08 Doctor Univ ersity of 22:20:26 Unassigned, No [place] [facility] Name Branch NOTICE OF PRIVACY PRACTICES 2021-03-08 Doctor Univ ersity of 22:20:26 Unassigned, No [place] [facility] Name Branch CONSENT/REFUSAL FOR DIAGNOSIS AND 2021-03-08 Doctor [facility] 22:20:10 Unassigned, No [place] [facility] Name Branch CONSENT/REFUSAL FOR DIAGNOSIS AND 2021-03-08 Doctor [facility] 22:20:10 Unassigned, No [place] [facility] Name Branch ASSIGNMENT OF BENEFITS 2021-03-08 Doctor Universit y of 22:19:51 Unassigned, No [place] [facility] Name Branch ASSIGNMENT OF BENEFITS 2021-03-08 [facility]:19[facility] Unassigned, No [place] [facility] Name Branch Plan of Care Planned Activity Planned Date Details Comments Source Future Scheduled 2022-05-25 Hepatitis C screening [facility] Test 03:31:17 (procedure) [code = 289368589] Future Scheduled 2022-05-25 BREAST CANCER [facility] Test 03:31:17 SCREENING [code = BREAST CANCER SCREENING] Future Scheduled 2022-05-25 SHINGLES VACCINES (1 Met [facility] Test 03:31:17 of 2) [code = SHINGLES VACCINES (1 of 2)] Future Scheduled 2022-05-25 65+ [facility]CCAL [facility] 03:31:17 VACCINE (1 - PCV) [code = 65+ PNEUMOCOCCAL VACCINE (1 - PCV)] Future Scheduled 2022-05-25 COVID-19 VACCINE (4 - [facility] Test 03:31:17 Booster for Moderna series) [code = COVID-19 VACCINE (4 - Booster for Moderna series)] Future Scheduled 2022-05-25 INFLUENZA VACCINE Method [facility] Test 03:31:17 [code = INFLUENZA VACCINE] Future Scheduled 2022-05-25 COLONOSCOPY SCREENING [facility] Test 03:31:17 [code = COLONOSCOPY SCREENING] Future Scheduled 2022-05-25 Hepatitis C screening [facility] Test 03:31:17 (procedure) [code = [id number]] Future Scheduled 2022-05-25 BREAST CANCER [facility] Test 03:31:17 SCREENING [code = BREAST CANCER SCREENING] Future Scheduled 2022-05-25 SHINGLES VACCINES (1 [facility] Test 03:31:17 of 2) [code = SHINGLES VACCINES (1 of 2)] Future Scheduled 2022-05-25 65+ [facility]OCOCCAL [facility] Test 03:31:17 VACCINE (1 - PCV) [code = 65+ PNEUMOCOCCAL VACCINE (1 - PCV)] Future Scheduled 2022-05-25 COVID-19 VACCINE (4 - [facility] [facility] Test 03:31:17 Booster for Moderna series) [code = COVID-19 VACCINE (4 - Booster for Moderna series)] Future Scheduled 2022-05-25 INFLUENZA VACCINE [facility] 03:31:17 [code = INFLUENZA VACCINE] Future Scheduled 2022-05-25 COLONOSCOPY SCREENING [facility] Hospital Test 03:31:17 [code = COLONOSCOPY SCREENING] Encounters Start End Encounter Admission Attending Care Care Encounter Source Date/Time Date/Time Type Type Clinicians Facility Department ID 2021-04-13 Outpatient DAVID NIELSEN [facility] [id number] Univers 02:43:45 IGLESIA clark [facility] 2022-01-04 2022-01-04 [facility], 1.2.840.1 [id number] 2099 [id number] Methodi 14:15:00 23:59:00 Encounter Red Mueller 01160.1.[address] 3.430.2.7 Hospit a .3.872281 l .8 2022-01-04 2022-01-04 [facility] 1.2.840.1 [id number] 2099 [id number] Methodi 14:15:00 23:59:00 Encounter Red Mueller 52293.1.[address] 3.430.2.7 Hospit a .3.258704 l .8 2022-01-04 2022-01-04 Travel 1.2.840.1 1.2.327.032 3854 [id number] Methodi 00:00:00 00:00:[address] 3.430.2.7 0.2.7.3.698 Ho spita .3.293672 084.8 l .8 2022-01-04 2022-01-04 Travel 1.2.840.1 1.2.286.901 6986 [id number] Methodi 00:00:00 00:00:[address] 3.430.2.7 0.2.7.3.698 Ho spita .3.478018 084.8 l .8 2021-12-30 2021-12-30 Office Leila, 1.2.840.1 [id number] Methodi 12:00:00 12:41:30 Visit Red Guerra. 28229.1.[address] 3.430.2.7 Hospit a .3.363682 l .8 2021-12-30 2021-12-30 Office Leila, 1.2.840.1 [id number] Methodi 12:00:00 12:41:30 Visit Red Mueller 61639.1.[address] 3.430.2.7 Hospit a .3.543930 l .8 2021-12-30 2021-12-30 [place], 1.2.840.1 [id number] Methodi 00:00:00 00:00:00 ion Praveen 77253.1.[address] 3.430.2.7 Hospit a .3.395394 l .8 2021-12-30 2021-12-30 Travel 1.2.840.1 1.2.070.698 3588 [id number] Methodi 00:00:00 00:00:[address] 3.430.2.7 0.2.7.3.698 Ho spita .3.131520 084.8 l .8 2021-12-30 2021-12-30 Documentat Manio, 1.2.840.1 [id number] 572 [id number] Methodi 00:00:00 00:00:00 ion Praveen 02914.1.[address] 3.430.2.7 Hospit a .3.413426 l .8 2021-12-30 2021-12-30 Travel 1.2.840.1 1.2.055.027 5689 [id number] Methodi 00:00:00 00:00:[address] 3.430.2.7 0.2.7.3.698 Ho spita .3.810126 084.8 l .8 2021-10-20 2021-10-20 [facility], 1.2.840.1 [id number] 2100 [id number] Methodi 12:36:00 15:40:00 Encounter Red Mueller 89541.1.[address] 3.430.2.7 Hospit a .3.623307 l .8 2021-10-20 2021-10-20 [facility], 1.2.840.1 [id number] 2100 [id number] Methodi 12:36:00 15:40:00 Encounter Red Mueller 38177.1.[address] 3.430.2.7 Hospit a .3.751659 l .8 2021-10-20 2021-10-20 [facility], 1.2.840.1 [id number] Methodi 14:00:00 15:00:00 Red Mueller 38877.1.[address] 3.430.2.7 Hospit a .3.249539 l .8 2021-10-20 2021-10-20 [facility], 1.2.840.1 [id number] 45612 Methodi 14:00:00 15:00:00 Red Mueller 24357.1.[address] 3.430.2.7 Hospit a .3.478760 l .8 2021-10-20 2021-10-20 Anesthesia Constantin Joyner 1.2.840 .1 [id number] Methodi 13:42:00 14:45:00 Event Steffanie Woodward 49020.1.[address] 3.430.2.7 Hospit a .3.599362 l .8 2021-10-20 2021-10-20 Anesthesia Constantin Joyner 1.2.840 .1 [id number] Methodi 13:42:00 14:45:00 Event Steffanie Woodward 71305.1.[address] 3.430.2.7 Hospit a .3.959429 l .8 2021-10-20 2021-10-20 Travel 1.2.840.1 1.2.721.300 2444 062916 Methodi 00:00:00 00:00:[address] 3.430.2.7 0.2.7.3.698 Ho spita .3.021115 084.8 l .8 2021-10-20 2021-10-20 Travel 1.2.840.1 1.2.050.366 1031 315800 Methodi 00:00:00 00:00:[address] 3.430.2.7 0.2.7.3.698 Ho spita .3.998774 084.8 l .8 2021-10-01 2021-10-01 [facility] 1.2.840.1 [id number] 2099 [id number] Methodi 12:15:08 23:59:00 Encounter Red Mueller 74227.1.[address] 3.430.2.7 Hospit a .3.557674 l .8 2021-10-01 2021-10-01 [facility] 1.2.840.1 [id number] 2099 [id number] Methodi 12:15:08 23:59:00 Encounter Red Mueller 00065.1.[address] 3.430.2.7 Hospit a .3.630021 l .8 2021-10-01 2021-10-01 Travel 1.2.840.1 1.2.798.499 8897 [id number] Methodi 00:00:00 00:00:[address] 3.430.2.7 0.2.7.3.698 Ho spita .3.004902 084.8 l .8 2021-10-01 2021-10-01 Travel 1.2.840.1 1.2.433.800 6289 232700 Methodi 00:00:00 00:00:[address] 3.430.2.7 0.2.7.3.698 Ho spita .3.281651 084.8 l .8 2021-09-28 2021-09-28 Travel 1.2.840.1 1.2.915.815 6521 091002 Methodi 00:00:00 00:00:[address] 3.430.2.7 0.2.7.3.698 Ho spita .3.346158 084.8 l .8 2021-09-28 2021-09-28 Travel 1.2.840.1 1.2.808.628 9445 742047 Methodi 00:00:00 00:00:[address] 3.430.2.7 0.2.7.3.698 Ho spita .3.568401 084.8 l .8 2021-09-23 2021-09-23 Orders Emerita, 1.2.840.1 [id number] Methodi 00:00:00 00:00:00 Only Nuvia 18345.1.[address] 3.430.2.7 Hospit a .3.392097 l .8 2021-09-23 2021-09-23 Telephone Leila, 1.2.840.1 [id number] Methodi 00:00:00 00:00:00 Red Mueller 32522.1.[address] 3.430.2.7 Hospit a .3.863785 l .8 2021-09-23 2021-09-23 Yue Felder, 1.2.840.1 [id number] Methodi 00:00:00 00:00:00 Only Nuvia 22959.1.[address] 3.430.2.7 Hospit a .3.138537 l .8 2021-09-23 2021-09-23 Telephone Liela, 1.2.840.1 [id number] 994 [id number] Methodi 00:00:00 00:00:00 Red Mueller 74630.1.[address] 3.430.2.7 Hospit a .3.113937 l .8 2021-09-21 2021-09-21 Office Leila, 1.2.840.1 [id number] Methodi 16:30:00 17:05:23 Visit Red Mueller 78521.1.[address] 3.430.2.7 Hospit a .3.683108 l .8 2021-09-21 2021-09-21 Office Leila, 1.2.840.1 [id number] Methodi 16:30:00 17:05:23 Visit Red Mueller 89454.1.[address] 3.430.2.7 Hospit a .3.497533 l .8 2021-09-21 2021-09-21 Travel 1.2.840.1 1.2.362.805 6284 538695 Methodi 00:00:00 00:00:[address] 3.430.2.7 0.2.7.3.698 Ho spita .3.680717 084.8 l .8 2021-09-21 2021-09-21 Travel 1.2.840.1 1.2.361.502 7971 243928 Methodi 00:00:00 00:00:[address] 3.430.2.7 0.2.7.3.698 Ho spita .3.364569 084.8 l .8 2021-09-15 2021-09-15 Telephone Manio, 1.2.840.1 [id number] Methodi 00:00:00 00:00:[address] 3.430.2.7 Hospit a .3.265213 l .8 2021-09-15 2021-09-15 Telephone Manio, 1.2.840.1 [id number] 2099 [id number] Methodi 00:00:00 00:00:[address] 3.430.2.7 Hospit a .3.074514 l .8 2021-09-01 2021-09-01 Telephone Manio, 1.2.840.1 [id number] 2099 [id number] Methodi 00:00:00 00:00:[address] 3.430.2.7 Hospit a .3.290854 l .8 2021-09-01 2021-09-01 Telephone Manio, 1.2.840.1 [id number] 2099 503103 Methodi 00:00:00 00:00:[address] 3.430.2.7 Hospit a .3.321380 l .8 2021-03-17 2021-03-17 [facility] 1.2.858.032 6388 0514 Univers 09:50:00 12:33:00 Encounter Iglesia Castanon 350.1.13.10 [facility] [place] [id number] [facility] 071 Branch 2021-03-17 2021-03-17 Surgery [facility] 1.2.840.114 [id number] Univers 11:33:00 12:16:00 Iglesia Castanon 350.1.13.10 [facility] [place] [id number] [facility] 020 Branch 2021-03-15 2021-03-15 Outpatient R [facility] [id number] Univers 15:00:00 15:00:00 IGLESIA clark [facility] 2021-03-15 2021-03-15 Orders Doctor SANTIAGO 1.2.840.114 [id number] Univers 00:00:00 00:00:00 Only Unassigned, FLORECITA 350.1.13.10 ity of [place] [facility] 4.2.7.2.686 [place] [id number] [place] [address] Branch 2021-03-08 2021-03-08 [employer] Yenni, [place] [facility] 1.2.8 40.114 [id number] Univers 17:20:52 17:35:52 Visit Iglesia Dick 350.1.13.1 0 [facility] 4.2.7.2.686 Tiago Sharpeio [id number] Me dical nal 353 [facility] 2021-03-08 2021-03-08 Outpatient R [facility] [id number] 16:30:00 16:30:00 IGLESIA [facility] 2019-12-03 2019-12-03 Outpatient G_Pappas [facility] [id number] [place] 11:47:00 11:47:00 06[facility] Results Test Description Test Time Test Comments Results Result Comments Source Surgical pathology request 2021-10-22 19:58:36 Test Item Value Reference Range Interpretation Comme nts Case number (test code = 1479175) [id number] Surgical pathology report (test code = See link below for PDF Lab R eport 2255) Result status (test code = 1000255) This is Final Report for [id number] 3197-1 [facility] [id number] 19:58:36 Test Item Value Reference Range Interpretation Comments Case number (test code = [id number]) Surgical pathology See link below for report (test code = PDF Lab Report 2255) Result status (test code This is Final Report = [id number]) [facility] [id number] [facility] [id number] 19:21:00 Test Item Value Reference Interpretation Comments [...] Non-Afr. 54 See_Comment L [Automated me ssage] Montserratian (test code The syst em which = 2775) generated this result transmit amari reference range : > OR = 60 mL/min/1.73m2. The reference range was not used to interpret this result as normal/abnormal . EGFR 62 See_Comment [Automated mes pierce] Montserratian (test code The syst em which = 2774) generated this result transmit amari reference range [...] . Sodium (test code = 141 mmol/L 096-895 7490-2) Potassium (test 3.4 mmol/L 3.5-5.3 L code = 2823-3) Chloride (test code 106 mmol/L 98-110 = 2075-0) CO2 (test code = 26 mmol/L 20-32 2027-9) Calcium (test code 9.7 mg/dL 8.6-10.4 = 81054-2) Protein (test code 6.9 g/dL 6.1-8.1 = 2885-2) Albumin, S (test 4.1 g/dL 3.6-5.1 code = 1751-7) Globulin, total 2.8 See_Comment [Automated message] (test code = The system [employer] h 87418-8) generated this result transmit amari reference range : 1.9 - 3.7 g/dL ([place] c). The reference r josé was not used to interpret this result as normal/abnormal . Albumin/globulin 1.5 See_Comment [Automated message] ratio (test code = The syste which 1759-0) generated this result transmit amari reference range : 1.0 - 2.5 (calc). T he reference range was not used to interpret this result as normal/abnormal . Total bilirubin 0.5 mg/dL 0.2-1.2 (test code = 1974-) Alkaline 64 U/L 37-153 phosphatase (test code = 6768-6) AST (test code = 19 U/L 10-35 1920-8) ALT (test code = 12 U/L 6-29 1742-6) SABINO (test code = FASTING:NO SABINO) FASTING: NO RAC (test code = Performing RAC) Organization Information: Site ID: LANE [facility]: [facility] Address: [address] [place] [address] Director: Jasper Amaro Lab Interpretation Abnormal (test code = 61575-5) [facility]-reactive [id number] 19:21:00 Test Item Value Reference Range Interpretation [...] code = RAC) Organization Information: Site ID: LANE Name: [facility] Address: [address] [place] [phone] Director: Jasper Amaro [facility] with platelet and [id number] 19:21:00 Test Item Value Reference Range Interpretation Comments WBC (test code = 5.8 See_Comment [Automated 6690-2) message] The system which generated this result transmitted reference range : 3.8 - 10.8 Thousand/uL. Th e reference range was not used to interpret this result as normal/abnormal . RBC (test code = 3.97 See_Comment [Automated 709-8) message] The system which generated this result [...] RAC) Organization Information: Site ID: RGA [facility] Address: [address] [place] [phone] Director: Jasper Amaro [facility] [id number] 19:21:00 Test Item Value Reference Range Interpretation Comments CRP (test code = 3.7 mg/L <=8.0 1987-5) SABINO (test code = FASTING:NO FASTING: NO SABINO) RAC (test code = Performing Organization RAC) Information: Site ID: RGA [facility] Address: [address] [place] [phone] Director: Jasper Amaro [facility] with platelet and [id number] 19:21:00 Test Item Value Reference Range Interpretation Comments WBC (test code = 5.8 See_Comment [Automated 6690-2) message] The system which generated this result transmitted reference range : 3.8 - 10.8 Thousand/uL. Th e reference range was not used to interpret this result as normal/abnormal . RBC (test code = 3.97 See_Comment [Automated 789-8) message] The system which generated this result [...] RAC) Organization Information: Site ID: RGA [facility] Address: [address] [place] [phone] Director: Jasper Amaro [facility] [id number] 19:21:00 Test Item Value Reference Interpretation Comments [...] Non-Afr. 54 See_Comment L [Automated me ssage] Montserr[place]ian (test code The syst em which = 5243) generated this result transmit amari reference range : > OR = 60 mL/min/1.73m2. The reference range was not used to interpret this result as normal/abnormal . EGFR 62 See_Comment [Automated mes pierce] [place]serr[place]ian (test code The syst em which = 2774) generated this result transmit amari reference range : > OR = 60 mL/min/1.73m2. The reference range was not used to interpret this result as normal/abnormal . BUN/creatinine 21 See_Comment [Automated m essage] ratio (test code = The [employer]e which 3097-3) generated this result transmit amari reference range : 6 - 22 (calc). The reference range was not used to interpret this result as normal/abnormal . Sodium (test code = 141 mmol/L 241-532 2674-2) Potassium (test 3.4 mmol/L 3.5-5.3 L code = 2823-3) Chloride (test code 106 mmol/L 98-110 = 2075-0) CO2 (test code = 26 mmol/L 20-32 8-9) Calcium (test code 9.7 mg/dL 8.6-10.4 = 41918-7) Protein (test code 6.9 g/dL 6.1-8.1 = 2885-2) Albumin, S (test 4.1 g/dL 3.6-5.1 code = 1751-7) Globulin, total 2.8 See_Comment [Automated message] (test code = The system [employer] h 51679-2) generated this result transmit amari reference range : 1.9 - 3.7 g/dL ([place] c). The reference r josé was not used to interpret this result as normal/abnormal . Albumin/globulin 1.5 See_Comment [Automated message] ratio (test code = [facility] which 1759-0) generated this result transmit amari [...] RAC) Organization Information: Site ID: RGA Name: [facility] Address: [address] [place] [phone] Director: Jasper Amaro Lab Interpretation Abnormal (test code = 07440-3) [facility]
[2022-08-24 11:13] LABS: Urine Blood 1+ (Negative); Urine Glucose Negative (Negative); Urine Protein Negative (Negative); Urine Specific Gravity >=1.030 (1.005-1.030); Urine pH 5.5 (5.0-7.0)
[2022-08-24 11:21] LABS: Albumin 3.6 g/dL (3.4-5.0); Bilirubin Total 0.3 mg/dL (0.2-1.0); Hematocrit 38.7 % (36.0-45.0); MPV 8.3 fL (7.6-11.3); Potassium 3.3 mmol/L (3.5-5.1); Protein, Total 7.6 g/dL (6.4-8.2); RBC Red Blood Cell Count 4.26 M/uL (3.86-4.86); Troponin High Sensitivity 5.5 pg/mL (<58.9)
[2022-08-24 11:37] LABS: Absolute Lymphocytes (CBC) 1.3 K/uL (0.7-4.9); Lymphocytes % 30.2 % (15.3-44.8)
--- NOTE | 2022-08-24 11:58 | RAD REPORT ---
EXAM DESCRIPTION: CT - Abdomen Pelvis W Contrast - 08/24/2022 11:39 am CLINICAL HISTORY: ABD PAIN COMPARISON: Abdomen Pelvis W Contrast dated 07/31/2019; Abdomen Pelvis W Contrast dated 01/04/2019 TECHNIQUE: Thin cut axial CT imaging of the abdomen and pelvis was performed following intravenous a dministration of 95 mL Isovue 300. Multiplanar reformats were generated and reviewed. All CT scans are performed using dose optimization technique as appropriate and may include automated exposure control or mA/KV adjustment according to patient size. FINDINGS: No suspicious findings in the lung bases. The liver demonstrates stable fluid density right lobe lesions, suggestive of small cysts. Status pos t cholecystectomy. The spleen, adrenal glands, and pancreas show no suspicious findings. Small sub ce ntimeters subcapsular cysts of the spleen, stable. No evidence of intra or extrahepatic biliary ducta l dilation. Stable exophytic left lower renal pole fluid density 6.1 centimeters cyst. No suspicious renal masses , or hydroureteronephrosis. No dilated bowel loops or bowel wall thickening. No free air, free fluid or inflammatory stranding. N o hernia, mass or bulky lymphadenopathy. The urinary bladder is without significant finding. No suspicious bony findings. Right anterior abdominal wall battery pack probably related to a pain pump is present. IMPRESSION: No acute intra-abdominal process. Stable findings, as above.
[2022-08-24] MEDS ORDERED: ONDANSETRON 4 MG/2 ML VIAL ONE (12:23)
[2022-08-24] MEDS ORDERED: NA CHLORIDE 0.9% 1,000 ML ONE (12:23)
[2022-08-24] MEDS ORDERED: MORPHINE 4 MG/ML SYR ONE (12:23)
--- NOTE | 2022-08-24 14:27 | ER ---
Nurse's Notes [facility] Name: Antionette Choe Age: 72 yrs Sex: Female : 1950 Arrival Date: 08/24/2022 Time: 10:04 Bed 16 Private MD: Diagnosis: Gastroparesis;Abdominal pain, Generalized;Hematuria, unspecified Presentation: 08/24 10:35 Chief complaint: Patient states: "I've been having stomach pain for a while but it got aa5 worse 3 days ago". pt reports pain to RLQ and diarrhea x 3 days. Reports being seen here 2 weeks ago for same abd pain. Coronavirus screen: diarrhea. Ebola Screen: Patient denies travel to an Ebola-affected area in the 21 days before illness onset. Initial Sepsis Screen: Does the patient meet any 2 criteria? No. Patient's initial sepsis screen is negative. Does the patient have a suspected source of infection? No. Patient's initial sepsis screen is negative. Risk Assessment: Do you want to hurt yourself or someone else? Patient reports no desire to harm self or others. Onset of symptoms was August 2022. 10:35 Acuity: YAHIR 3 aa5 10:35 Method Of Arrival: Ambulatory aa5 Triage Assessment: 11:00 General: Appears in no apparent distress. comfortable, Behavior is calm, cooperative. db Pain: Complains of pain in abdomen. GI: Abdomen is flat, non-distended, Reports lower abdominal pain, upper abdominal pain. Historical: - Allergies: 10:34 Cephalexin Monohydrate; aa5 10:34 latex; aa5 10:34 meperidine HCl; aa5 - PMHx: 10:34 Gastroparesis; aa5 - PSHx: 10:34 stomach pacemaker; aa5 - Immunization history:: Adult Immunizations unknown. - Social history:: Smoking status: Patient denies any tobacco usage or history of. Screenin:28 [facility] ED Fall Risk Assessment (Adult) History of falling in the last 3 months, db including since admission No falls in past 3 months (0 pts) Confusion or Disorientation No (0 pts) Intoxicated or Sedated No (0 pts) Impaired Gait No (0 pts) Mobility Assist Device Used No (0 pt) Altered Elimination No (0 pt) Score/Fall Risk Level 0 - 2 = Low Risk Oriented to surroundings, Maintained a safe environment. Abuse screen: Denies threats or abuse. Denies injuries from another. Nutritional screening: No deficits noted. Tuberculosis screening: No symptoms or risk factors identified. Assessment: 12:27 Reassessment: Patient appears in no apparent distress at this time. Patient and/or db family updated on plan of care and expected duration. Pain level reassessed. Patient is alert, oriented x 3, equal unlabored respirations, skin warm/dry/pink. General: Appears in no apparent distress. uncomfortable, Behavior is calm, cooperative. Pain: Complains of pain in abdomen. Neuro: Level of Consciousness is awake, alert, obeys commands, Oriented to person, place, time, situation. Vital Signs: 10:35 BP 133 / 78; Pulse 85; Resp 14 S; Temp 97.4(TE); Pulse Ox 100% on R/A; Weight 49.9 kg aa5 (R); Height 5 ft. 0 in. (R); 12:18 BP 152 / 95; Pulse 77; Resp 18; Temp 98.1; Pulse Ox 98% ; Weight 49.9 kg; Height 5 ft. rs5 0 in. ; 12:18 Body Mass Index 21.48 (49.90 kg, 152.4 cm) rs5 ED Course: 10:04 Patient arrived in ED. mr 10:05 Claudia Ovalle PA-C is PHCP. sb4 10:05 Kyle Oliveira MD is Attending Physician. sb4 10:34 Arm band placed on. aa5 10:36 Triage completed. aa5 10:55 CBC with Diff Sent. bc6 10:55 CMP Sent. bc6 10:55 Lipase Sent. bc6 10:55 CBC with Automated Diff Sent. bc6 10:55 Lipase Sent. bc6 10:55 Comprehensive Metabolic Panel Sent. bc6 10:55 Troponin High Sensitivity Sent. bc6 10:55 Initial lab(s) drawn, by me, sent to lab. Inserted saline lock: 20 gauge in right bc6 antecubital area, using aseptic technique. 11:41 CT Abd/Pelvis - IV Contrast Only In Process Unspecified. EDMS 12:10 Lottie Peres, RN is Primary Nurse. db 12:28 Patient has correct armband on for positive identification. Bed in low position. Call db light in reach. Side rails up X 1. Client placed on continuous cardiac and pulse oximetry monitoring. NIBP monitoring applied. Warm blanket given. 14:26 Jace Bear MD is Referral Physician. sb4 Administered Medications: 12:20 Drug: NS 0.9% IV 1000 ml Route: IV; Rate: 1 bolus; Site: right antecubital; db 12:22 Drug: morphine IVP or IV 4 mg Route: IVP; Infused Over: 4 mins; Site: right antecubital;db 12:26 Drug: Ondansetron IVP 4 mg Route: IVP; Site: right antecubital; db Outcome: 14:27 Discharge ordered by . sb4 Signatures: Dispatcher [employer] Candie Villareal Audri, RN RN aa5 Lottie Peres RN RN Claudia Lou, PA-C PA-C sb4 Armando Valladares rs5 Mela Noel bc6
--- NOTE | 2022-08-24 14:27 | EDPHYS ---
Physician Documentation [facility] Name: Antionette Choe Age: 72 yrs Sex: Female : 1950 Arrival Date: 08/24/2022 Time: 10:04 Bed 16 Private MD: ED Physician Kyle Oliveira HPI: 08/24 10:45 This 72 yrs old Female presents to ER via Ambulatory with complaints of Abdominal Pain, sb4 Diarrhea. 10:45 The patient presents with abdominal pain in the left upper quadrant, right lower sb4 quadrant. Onset: The symptoms/episode began/occurred 2 week(s) ago. The symptoms radiate to left back. Associated signs and symptoms: Pertinent positives: diarrhea, Pertinent negatives: nausea and vomiting, blood in stools, hematuria, vomiting, vomiting blood. Modifying factors: The symptoms are alleviated by nothing, the symptoms are aggravated by coughing, breathing deeply. The patient has not recently seen a physician. Patient with history of gastroparesis and stomach pacemaker who states she has been having abdominal pain x 2 weeks and diarrhea x 3 days. She states she has pain in her RLQ but also has pain in her LUQ that radiates around to her back. Denies nausea, vomiting, melena, hematuria, dysuria. . Historical: - Allergies: 10:34 Cephalexin Monohydrate; aa5 10:34 latex; aa5 10:34 meperidine HCl; aa5 - PMHx: 10:34 Gastroparesis; aa5 - PSHx: 10:34 stomach pacemaker; aa5 - Immunization history:: Adult Immunizations unknown. - Social history:: Smoking status: Patient denies any tobacco usage or history of. ROS: 10:45 Constitutional: Negative for fever, chills, and weight loss, Eyes: Negative for injury, sb4 pain, redness, and discharge, ENT: Negative for injury, pain, and discharge, Cardiovascular: Negative for chest pain, palpitations, and edema, Respiratory: Negative for shortness of breath, cough, wheezing, and pleuritic chest pain, Back: Negative for injury and pain, : Negative for injury, bleeding, discharge, and swelling, MS/Extremity: Negative for injury and deformity, Skin: Negative for injury, rash, and discoloration, Neuro: Negative for headache, weakness, numbness, tingling, and seizure. 10:45 Abdomen/GI: Positive for abdominal pain, diarrhea, Negative for nausea and vomiting, dysphagia, hematemesis, black/tarry stool, rectal pain, rectal bleeding. Exam: 10:45 Constitutional: This is a well developed, well nourished patient who is awake, alert, sb4 and in no acute distress. Head/Face: Normocephalic, atraumatic. Eyes: Extra-ocular motions intact. Periorbital areas with no swelling, redness, or edema. ENT: Mucous membranes moist. Cardiovascular: Regular rate and rhythm with a normal S1 and S2. Respiratory: Lungs have equal breath sounds bilaterally, clear to auscultation and percussion. No rales, rhonchi or wheezes noted. No increased work of breathing, no retractions or nasal flaring. Abdomen/GI: Soft, non-tender, no distension. Back: No spinal tenderness. No costovertebral tenderness. Full range of motion. Skin: Warm, dry with normal turgor. Normal color with no rashes, no lesions, and no evidence of cellulitis. MS/ Extremity: Pulses equal, no cyanosis. Neurovascular intact. Full, normal range of motion. Vital Signs: 10:35 BP 133 / 78; Pulse 85; Resp 14 S; Temp 97.4(TE); Pulse Ox 100% on R/A; Weight 49.9 kg aa5 (R); Height 5 ft. 0 in. (R); 12:18 BP 152 / 95; Pulse 77; Resp 18; Temp 98.1; Pulse Ox 98% ; Weight 49.9 kg; Height 5 ft. rs5 0 in. ; 12:18 Body Mass Index 21.48 (49.90 kg, 152.4 cm) rs5 MDM: 10:43 Patient medically screened. sb4 10:45 Differential diagnosis: acute coronary syndrome, bowel obstruction, diverticulitis, sb4 gastritis, gastroesophageal reflux disease, non-specific abd pain, pancreatitis, Peptic Ulcer Disease, Pyelonephritis, urinary tract infection. 14:24 Data reviewed: vital signs, nurses notes, lab test result(s), amylase and lipase, sb4 cardiac enzymes, CBC, electrolytes, urinalysis, radiologic studies, CT scan, and as a result, I will discharge patient. Consideration of Admission/Observation Escalation of care including admission/observation considered. I considered the following discharge prescriptions or medication management in the emergency department Antibiotics: At this time antibiotics are not recommended. Test considered but Not performed: Ultrasound no gall bladder, pain likely related to gatroparesis. Historians other than the Patient: Spouse/Significant Other: . Special discussion: Based on the history and exam findings, there is no indication for further emergent testing or inpatient evaluation. I discussed with the patient/guardian the need to see the case supervisor for further evaluation of the symptoms. 08/24 10:44 Order name: CBC with Diff sb4 08/24 10:44 Order name: CMP sb4 08/24 10:44 Order name: Lipase sb4 08/24 10:44 Order name: CT Abd/Pelvis - IV Contrast Only; Complete Time: 11:59 sb4 08/24 10:44 Order name: IV Saline Lock; Complete Time: 10:55 sb4 08/24 10:44 Order name: Labs collected and sent; Complete Time: 10:55 sb4 08/24 10:44 Order name: Urine Dipstick-Ancillary (obtain specimen); Complete Time: 11:13 sb4 08/24 10:44 Order name: Troponin High Sensitivity sb4 08/24 11:13 Order name: Urine Dipstick-Ancillary; Complete Time: 11:15 EDMS 08/24 10:46 Order name: Troponin High Sensitivity; Complete Time: 11:21 EDMS 08/24 10:46 Order name: CBC with Automated Diff; Complete Time: 11:41 EDMS 08/24 10:46 Order name: Comprehensive Metabolic Panel; Complete Time: 11:21 EDMS 08/24 10:46 Order name: Lipase; Complete Time: 11:21 EDMS Administered Medications: 12:20 Drug: NS 0.9% IV 1000 ml Route: IV; Rate: 1 bolus; Site: right antecubital; db 12:22 Drug: morphine IVP or IV 4 mg Route: IVP; Infused Over: 4 mins; Site: right antecubital;db 12:26 Drug: Ondansetron IVP 4 mg Route: IVP; Site: right antecubital; db Disposition Summary: 08/24/22 14:27 Discharge Ordered Location: Home sb4 Problem: an ongoing problem sb4 Symptoms: are unchanged sb4 Condition: Stable sb4 Diagnosis - Gastroparesis sb4 - Abdominal pain, Generalized sb4 - Hematuria, unspecified sb4 Followup: sb4 - With: Jace Bear MD - When: 2 - 3 days - Reason: Recheck today's complaints, Re-evaluation by your physician Forms: - Medication Reconciliation Form sb4 - Thank You Letter sb4 - Antibiotic Education sb4 - Prescription Opioid Use sb4 Signatures: Dispatcher [employer] EDGayle Deleon RN RN aa5 Lottie Peres RN RN db Claudia Ovalle, PAUbaldo PAUbaldo sb4 Corrections: (The following items were deleted from the chart) 11:00 10:45 Patient with history of gastroparesis and pacemaker who states she has been sb4 having abdominal pain x 2 weeks and diarrhea x 3 days. She states she has pain in her RLQ but also has pain in her LUQ that radiates around to her back. Denies nausea, vomiting, melena, hematuria, dysuria. . sb4
[2022-08-24] MEDS ORDERED: POTASSIUM 25 MEQ EFFERV TAB ONE (15:01)
[2022-08-24] MEDS ORDERED: HYDROMORPHONE HCL 0.5 MG/0.5 ML INJ ONE (15:01)
== END 2022-08-24 15:18 | disposition home or self-care (01) ==
LOC: ER 10:00
DX: K31.84 Gastroparesis (principal); R31.9 Hematuria, unspecified; Z88.8 Allergy status to other drugs, medicaments and biological substances; Z91.040 Latex allergy status
CPT/HCPCS: 85025; 36415; 81003; 84484; 83690; 80053; 74177; Q9967; J1170; J2405; J7030

== ENCOUNTER 2022-12-08 06:59 | Day surgery (SDC) | payer OTHER ==
[2022-12-08] MEDS ORDERED: SODIUM CHLORIDE 0.9% 10ML INJ IV ONE (08:00)
[2022-12-08] MEDS ORDERED: COSYNTROPIN 0.25 MG VIAL IV ONE (08:00)
[2022-12-08 08:25] VITALS: O2SAT 100; BMI 21.9
[2022-12-08 09:52] VITALS: BP 130/79; TEMP 97.8
== END 2022-12-08 09:42 | disposition home or self-care (01) ==
LOC: DS 06:59
PROVIDERS: ATTEND Internal Medicine
DX: E87.1 Hypo-osmolality and hyponatremia (principal)
CPT/HCPCS: 36415; 82533 ×4; 82024; 96372; A4216; J0834